=== PATIENT | female | born 1970 | race Caucasian/White ===

== ENCOUNTER 2016-05-30 08:41 | Inpatient (IN) | payer OTHER ==
[2016-05-30] VITALS (11 sets, daily range): BP systolic 124–167; BP diastolic 68–88
[~2016-05-30] VITALS: Ht 160 cm; Wt 137.4 kg
[~2016-05-30 08:41] MED LIST: CELEXA10 MG PO; CELEXA20 MG PO; CORDROL20 MG PO; COREG12.5 MG PO; COREG25 MG PO; DIFLUCAN100 MG PO; HYDROCODONE BIT1 T11 PO; LEVOFLOXACIN500 MG PO; MOBIC15 MG PO; NYSTAT-RX1 POW; PRILOSEC40 MG PO; TYLENOL325 M1 PO; XANAX0.5 MG PO; ZOFRAN ODT4 MG SL
[2016-05-30 09:34] LABS: BASO # 0.1 10*3/uL (0.0-0.1); BASO % 0.8 % (0.0-1.0); EOS # 0.1 10*3/uL (0.0-0.4); EOS % 1.6 % (1.0-4.0); HEMATOCRIT 36.4 % (37.0-47.0); HEMOGLOBIN 11.2 g/dl (12.0-16.0); LYMPH # 1.7 10*3/uL (1.3-4.4); LYMPH % 22.5 % (27.0-41.0); MEAN CORPUSCULAR HGB 20.6 pg (27.0-31.0); MEAN CORPUSCULAR HGB CONC 30.8 g/dl (33.0-37.0); MEAN PLATELET VOLUME 8.6 fl (9.6-12.3); MONO # 0.4 10*3/uL (0.1-1.0); MONO % 5.1 % (3.0-9.0); NEUT # 5.3 10*3/uL (2.3-7.9); NEUT % 69.7 % (47.0-73.0); PLATELET COUNT AUTOMATED 256 10*3/uL (130-400); RED BLOOD COUNT 5.43 10*6/uL (4.10-5.10); RED CELL DISTRI WIDTH 15.6 % (0-14.5); WHITE BLOOD COUNT 7.6 10*3/uL (4.8-10.8)
[2016-05-30 09:43] LABS: INTERNATIONAL NORM RATIO 0.9 (2.0-3.5)
[2016-05-30 09:54] LABS: ALBUMIN 3.4 gm/dl (3.1-4.5); ALKALINE PHOSPHATASE 52 U/L (45-117); BILIRUBIN, TOTAL 0.7 mg/dl (0.2-1.0); BUN 9 mg/dl (7-24); CARBON DIOXIDE 28 mmol/L (21-32); CHLORIDE 107 mmol/L (98-107); EST GLOM FILT AFRICAN AMERICAN > 60 ml/min; GLUCOSE 107 mg/dL (65-99); MAGNESIUM 1.8 mg/dL (1.5-2.1); POTASSIUM 3.9 mmol/L (3.5-5.1); SGOT/AST 11 IU/L (3-35); SGPT/ALT 27 U/L (12-78); SODIUM 143 mmol/L (136-145); TOTAL PROTEIN 7.2 gm/dL (6.4-8.2)
[2016-05-30 10:06] LABS: TROPONIN I < 0.015 ng/ml (<0.5)
[2016-05-30 18:12] LABS: CKMB 0.8 ng/ml (0.5-3.6); CPK 38 U/L (26-192)
[2016-05-30 18:23] LABS: TROPONIN I < 0.015 ng/ml (<0.5)
[2016-05-31] VITALS: BP 140/80
[2016-05-31 00:54] LABS: CKMB 1.2 ng/ml (0.5-3.6); CPK 33 U/L (26-192)
[2016-05-31 00:55] LABS: TROPONIN I < 0.015 ng/ml (<0.5)
[2016-05-31 06:08] LABS: BASO # 0.1 10*3/uL (0.0-0.1); BASO % 0.8 % (0.0-1.0); EOS # 0.2 10*3/uL (0.0-0.4); HEMATOCRIT 35.8 % (37.0-47.0); HEMOGLOBIN 10.6 g/dl (12.0-16.0); LYMPH # 2.1 10*3/uL (1.3-4.4); MEAN CELL VOLUME 67.7 fl (81.0-99.0); MEAN CORPUSCULAR HGB CONC 29.6 g/dl (33.0-37.0); MONO # 0.5 10*3/uL (0.1-1.0); MONO % 6.2 % (3.0-9.0); NEUT % 63.7 % (47.0-73.0); PLATELET COUNT AUTOMATED 261 10*3/uL (130-400); RED BLOOD COUNT 5.29 10*6/uL (4.10-5.10); RED CELL DISTRI WIDTH 15.7 % (0-14.5); WHITE BLOOD COUNT 7.9 10*3/uL (4.8-10.8)
[2016-05-31 06:20] LABS: CKMB 0.9 ng/ml (0.5-3.6); CPK 28 U/L (26-192)
[2016-05-31 06:23] LABS: HEMOGLOBIN A1c 5.7 % (4.8-5.6); TROPONIN I < 0.015 ng/ml (<0.5)
[2016-05-31 06:41] LABS: ALBUMIN 3.2 gm/dl (3.1-4.5); ALKALINE PHOSPHATASE 51 U/L (45-117); BILIRUBIN, TOTAL 0.6 mg/dl (0.2-1.0); BUN 11 mg/dl (7-24); CARBON DIOXIDE 27 mmol/L (21-32); CHLORIDE 107 mmol/L (98-107); CHOLESTEROL 137 mg/dL (<200); EST GLOM FILT AFRICAN AMERICAN > 60 ml/min; FREE T4 1.12 ng/dl (0.76-1.46); GLUCOSE 101 mg/dL (65-99); HDL CHOLESTEROL 55 mg/dl (40-60); LDL CHOLESTEROL 67 mg/dL (9-159); MAGNESIUM 1.8 mg/dL (1.5-2.1); PHOSPHOROUS 3.7 mg/dL (2.5-4.9); POTASSIUM 3.8 mmol/L (3.5-5.1); SGOT/AST 12 IU/L (3-35); SGPT/ALT 24 U/L (12-78); SODIUM 142 mmol/L (136-145); TRIGLYCERIDES 73 mg/dl (<150); VLDL CHOLESTEROL 15 mg/dL (6-40)
[2016-05-31 07:13] LABS: FOLIC ACID 8.27 ng/mL (>5.38); VITAMIN D, 25-HYDROXY 16.6 ng/mL (30-100)
[2016-05-31 08:00] VITALS: BP 130/68
[2016-05-31] MEDS ORDERED: PANTOPRAZOLE SO40 MG PO (09:57)
[2016-05-31] MEDS ORDERED: VITAMIN D5000 I3 PO (09:59)
[2016-05-31 12:00] VITALS: BP 141/76
== END 2016-05-31 12:45 | disposition home or self-care (01) | DRG 392 ==
LOC: ED 08:41 → 5E 11:09 → EDHOLD 11:09 → 5E 11:19
PROVIDERS: Family Medicine; Registered Nurse
DX: K21.9 Gastro-esophageal reflux disease without esophagitis (principal); I24.9 Acute ischemic heart disease, unspecified; R07.89 Other chest pain; E66.01 Morbid (severe) obesity due to excess calories; I10 Essential (primary) hypertension; R13.10 Dysphagia, unspecified; F32.9 Major depressive disorder, single episode, unspecified; D50.9 Iron deficiency anemia, unspecified; E55.9 Vitamin D deficiency, unspecified; E74.39 Other disorders of intestinal carbohydrate absorption; Z98.890 Other specified postprocedural states; Z83.3 Family history of diabetes mellitus; Z82.49 Family history of ischemic heart disease and other diseases of the circulatory system; Z84.89 Family history of other specified conditions; Z88.8 Allergy status to other drugs, medicaments and biological substances; Z79.899 Other long term (current) drug therapy

== ENCOUNTER → 2016-07-26 | Day surgery (SDC) | payer OTHER ==
[~2016-07-26] VITALS: Ht 160 cm; Wt 139.7 kg
[~2016-07-26] MED LIST changes: +PANTOPRAZOLE SO40 MG PO; +VITAMIN D5000 I3 PO
--- NOTE | ~2016-07-26 | PROC NOTE ---
[place], [place] PROCEDURE NOTE NAME: KARI COOPER [facility] #: [id number] UNIT #: [id number] ROOM: DOCTOR: ITZ HUDSON MD BIRTHDATE: [birth year] DOS: 07/26/2016 PREOPERATIVE DIAGNOSIS: Gastroesophageal reflux disease. POSTOPERATIVE DIAGNOSIS: Gastroesophageal reflux disease. PROCEDURE: Esophagogastroduodenoscopy with antral biopsies x 2. ENDOSCOPIST: Itz Hudson M.D. INTEGRATION TECHNICIAN: None. ANESTHESIA: MAC. INDICATIONS: This is a 46-year-old lady with a history of GERD and possible aspiration, who is here for the above-mentioned procedure. The procedure and its complications were explained to the patient in detail preoperatively. Complications that were discussed included but were not limited to bleeding, missed lesions, and stomach perforation. She agreed to proceed. DESCRIPTION OF PROCEDURE: After identifying the patient, the patient was brought to the endoscopy suite and laid in the left lateral position. A timeout procedure was called, a bite block was placed, and IV sedation was administered by the anesthesia team. An adult gastroscope was now introduced into the mouth and advanced sequentially into the pharynx, esophagus, stomach, and the first 2 parts of the duodenum. There was found to be some mild antral gastritis for which 2 biopsies were taken and sent for histopathological diagnosis. The scope was then retroflexed and the rest of the stomach was visualized and there was no bleeding seen, no lesions seen. The duodenum was found to be within normal limits. The scope was then withdrawn and the patient was taken to the recovery room in stable fashion. There were no complications. Dr. Itz Hudson, the attending endoscopist, was present throughout the operating case. Itz Hudson MD CM:PROCNOTE:PROCEDURE NOTE [id number] ITZ HUDSON MD
== END | disposition home or self-care (01) ==
LOC: SDC 07-23 09:30
DX: K29.50 Unspecified chronic gastritis without bleeding (principal); K21.9 Gastro-esophageal reflux disease without esophagitis; I10 Essential (primary) hypertension; F41.9 Anxiety disorder, unspecified; Z86.14 Personal history of Methicillin resistant Staphylococcus aureus infection; Z87.01 Personal history of pneumonia (recurrent); Z83.3 Family history of diabetes mellitus; Z82.49 Family history of ischemic heart disease and other diseases of the circulatory system; Z80.49 Family history of malignant neoplasm of other genital organs

== ENCOUNTER 2016-09-17 10:36 | Emergency (ER) | payer OTHER ==
[~2016-09-17] VITALS: Ht 160 cm; Wt 137.4 kg
--- NOTE | ~2016-09-17 | EKG ---
[place], [place] ELECTROCARDIOGRAM REPORT NAME: KARI COOPER UNIT #: [id number] ROOM: DOCTOR: MICHAEL SHARP MD BIRTHDATE: [birth year] DOS: 09/17/2016 TIME: 11:25 a.m. Normal sinus rhythm at rate of 60 with 1 atrial premature contraction noted. Nonspecific intraventricular conduction delay. Borderline electrocardiogram. MICHAEL SHARP MD CM:EKGRPT:ELECTROCARDIOGRAM REPORT [id number] MICHAEL SHARP MD
[2016-09-17] MEDS ORDERED: TRAMADOL HCL50 MG PO (10:45)
[2016-09-17 11:28] LABS: BASO # 0.1 10*3/uL (0.0-0.1); BASO % 0.4 % (0.0-1.0); EOS % 0.2 % (1.0-4.0); HEMATOCRIT 33.9 % (37.0-47.0); LYMPH # 3.2 10*3/uL (1.3-4.4); LYMPH % 23.6 % (27.0-41.0); MEAN CELL VOLUME 65.8 fl (81.0-99.0); MEAN CORPUSCULAR HGB 19.4 pg (27.0-31.0); MEAN CORPUSCULAR HGB CONC 29.5 g/dl (33.0-37.0); MEAN PLATELET VOLUME 9.5 fl (9.6-12.3); MONO # 1.3 10*3/uL (0.1-1.0); MONO % 9.5 % (3.0-9.0); NEUT # 8.8 10*3/uL (2.3-7.9); PLATELET COUNT AUTOMATED 286 10*3/uL (130-400); RED BLOOD COUNT 5.15 10*6/uL (4.10-5.10); RED CELL DISTRI WIDTH 15.9 % (0-14.5); WHITE BLOOD COUNT 13.4 10*3/uL (4.8-10.8)
[2016-09-17 11:37] LABS: PROTHROMBIN TIME 10.6 SECONDS (9.0-12.4)
[2016-09-17 11:52] LABS: ALBUMIN 3.5 gm/dl (3.1-4.5); ALKALINE PHOSPHATASE 45 U/L (45-117); BILIRUBIN, TOTAL 0.6 mg/dl (0.2-1.0); BUN 14 mg/dl (7-24); C-REACTIVE PROTEIN 0.48 MG/DL (0-0.3); CARBON DIOXIDE 28 mmol/L (21-32); CHLORIDE 107 mmol/L (98-107); CKMB 0.8 ng/ml (0.5-3.6); CPK 28 U/L (26-192); EST GLOM FILT AFRICAN AMERICAN > 60 ml/min; GLUCOSE 99 mg/dL (65-99); MAGNESIUM 1.8 mg/dL (1.5-2.1); POTASSIUM 3.8 mmol/L (3.5-5.1); SGOT/AST 12 IU/L (3-35); SGPT/ALT 19 U/L (12-78); SODIUM 142 mmol/L (136-145); TOTAL PROTEIN 7.1 gm/dL (6.4-8.2)
[2016-09-17 11:53] LABS: TROPONIN I < 0.015 ng/ml (<0.045)
[2016-09-17 12:25] LABS: BILIRUBIN NEGATIVE (NEGATIVE); BLOOD TRACE-LYSED (NEGATIVE); CLARITY CLEAR (CLEAR); COLOR YELLOW (YELLOW); GLUCOSE NEGATIVE (NEGATIVE); KETONE NEGATIVE (NEGATIVE); LEUKO ESTERASE NEGATIVE (NEGATIVE); NITRITE NEGATIVE (NEGATIVE); PH 5.5 (5.0-9.0); PROTEIN 1+ (NEGATIVE); UROBILINOGEN 0.2 E.U./dl (0.2-1.0)
[2016-09-17 12:33] LABS: URINE REFLEX COMMENT NO (NO)
== END 2016-09-17 16:16 | disposition short-term general hospital (02) ==
LOC: ED 10:36
PROVIDERS: Emergency Medicine
DX: K81.0 Acute cholecystitis (principal); F32.9 Major depressive disorder, single episode, unspecified; I10 Essential (primary) hypertension; E66.01 Morbid (severe) obesity due to excess calories; E55.9 Vitamin D deficiency, unspecified; Z98.890 Other specified postprocedural states; Z87.442 Personal history of urinary calculi; Z79.899 Other long term (current) drug therapy; Z88.5 Allergy status to narcotic agent; Z88.8 Allergy status to other drugs, medicaments and biological substances

== ENCOUNTER 2016-09-21 21:20 | Emergency (ER) | payer OTHER ==
[~2016-09-21] VITALS: Ht 160 cm; Wt 140.6 kg
[~2016-09-21 21:20] MED LIST changes: +TRAMADOL HCL50 MG PO
[2016-09-21 22:00] LABS: BASO % 0.3 % (0.0-1.0); EOS # 0.6 10*3/uL (0.0-0.4); EOS % 4.9 % (1.0-4.0); HEMATOCRIT 31.4 % (37.0-47.0); HEMOGLOBIN 9.4 g/dl (12.0-16.0); LYMPH # 2.9 10*3/uL (1.3-4.4); LYMPH % 24.7 % (27.0-41.0); MEAN CORPUSCULAR HGB 19.7 pg (27.0-31.0); MEAN CORPUSCULAR HGB CONC 29.9 g/dl (33.0-37.0); MONO # 0.9 10*3/uL (0.1-1.0); MONO % 7.8 % (3.0-9.0); NEUT # 7.2 10*3/uL (2.3-7.9); PLATELET COUNT AUTOMATED 310 10*3/uL (130-400); RED BLOOD COUNT 4.76 10*6/uL (4.10-5.10); RED CELL DISTRI WIDTH 15.7 % (0-14.5); WHITE BLOOD COUNT 11.6 10*3/uL (4.8-10.8)
[2016-09-21 22:15] LABS: ALBUMIN 3.1 gm/dl (3.1-4.5); ALKALINE PHOSPHATASE 43 U/L (45-117); BILIRUBIN, TOTAL 0.5 mg/dl (0.2-1.0); BUN 17 mg/dl (7-24); CARBON DIOXIDE 27 mmol/L (21-32); CHLORIDE 108 mmol/L (98-107); EST GLOM FILT AFRICAN AMERICAN > 60 ml/min; GLUCOSE 109 mg/dL (65-99); POTASSIUM 4.1 mmol/L (3.5-5.1); SGOT/AST 4 IU/L (3-35); SGPT/ALT 16 U/L (12-78); SODIUM 146 mmol/L (136-145); TOTAL PROTEIN 6.7 gm/dL (6.4-8.2)
[2016-09-21] MEDS ORDERED: KEFLEX500 M1 PO (22:37)
== END 2016-09-21 22:46 | disposition home or self-care (01) ==
LOC: ED 21:20
PROVIDERS: Family Medicine
DX: T81.4XXA Infection following a procedure, initial encounter (principal); Z88.6 Allergy status to analgesic agent; Z88.8 Allergy status to other drugs, medicaments and biological substances; I10 Essential (primary) hypertension; F32.9 Major depressive disorder, single episode, unspecified

== ENCOUNTER → 2017-03-05 | Outpatient (CLI) | payer OTHER ==
[~2017-03-05] MED LIST changes: +KEFLEX500 M1 PO
== END | disposition home or self-care (01) ==
LOC: MAMMO 06:53
DX: Z12.31 Encounter for screening mammogram for malignant neoplasm of breast (principal)

== ENCOUNTER 2017-03-25 16:31 | Emergency (ER) | payer OTHER ==
[~2017-03-25] VITALS: Ht 210.8 cm; Wt 142.9 kg
[2017-03-25 17:49] LABS: BASO # 0.1 10*3/uL (0.0-0.1); BASO % 0.6 % (0.0-1.0); EOS # 0.1 10*3/uL (0.0-0.4); EOS % 1.3 % (1.0-4.0); HEMATOCRIT 29.5 % (37.0-47.0); HEMOGLOBIN 8.7 g/dl (12.0-16.0); LYMPH # 2.8 10*3/uL (1.3-4.4); LYMPH % 28.8 % (27.0-41.0); MEAN CELL VOLUME 65.8 fl (81.0-99.0); MEAN CORPUSCULAR HGB 19.4 pg (27.0-31.0); MEAN CORPUSCULAR HGB CONC 29.5 g/dl (33.0-37.0); MEAN PLATELET VOLUME 8.8 fl (9.6-12.3); MONO # 0.7 10*3/uL (0.1-1.0); MONO % 6.9 % (3.0-9.0); PLATELET COUNT AUTOMATED 273 10*3/uL (130-400); RED BLOOD COUNT 4.48 10*6/uL (4.10-5.10); RED CELL DISTRI WIDTH 16.3 % (0-14.5); WHITE BLOOD COUNT 9.7 10*3/uL (4.8-10.8)
[2017-03-25 18:04] LABS: ALBUMIN 3.3 gm/dl (3.1-4.5); ALKALINE PHOSPHATASE 57 U/L (45-117); BUN 10 mg/dl (7-24); CHLORIDE 104 mmol/L (98-107); POTASSIUM 3.6 mmol/L (3.5-5.1); SGOT/AST 8 IU/L (3-35); SGPT/ALT 19 U/L (12-78); SODIUM 141 mmol/L (136-145); TOTAL PROTEIN 7.1 gm/dL (6.4-8.2)
[2017-03-25] MEDS ORDERED: PREDNISONE20 M1 PO (19:35)
[2017-03-25] MEDS ORDERED: LEVOFLOXACIN500 MG PO (19:35)
[2017-03-25] MEDS ORDERED: ALBUTEROL2.5 MG/0.5 INH (19:35)
== END 2017-03-25 19:55 | disposition home or self-care (01) ==
LOC: ED 16:31
PROVIDERS: Nurse Practitioner Family
DX: J20.9 Acute bronchitis, unspecified (principal); Z88.6 Allergy status to analgesic agent; Z88.8 Allergy status to other drugs, medicaments and biological substances; Z79.899 Other long term (current) drug therapy

== ENCOUNTER 2017-06-04 00:21 | Emergency (ER) | payer OTHER ==
[~2017-06-04] VITALS: Ht 160 cm; Wt 142.9 kg
[~2017-06-04 00:21] MED LIST changes: +ALBUTEROL2.5 MG/0.5 INH; +PREDNISONE20 M1 PO
[2017-06-04] MEDS ORDERED: CYCLOBENZAPRINE10 MG PO (02:01)
[2017-06-04] MEDS ORDERED: NAPROSYN500 MG PO (02:01)
== END 2017-06-04 02:20 | disposition home or self-care (01) ==
LOC: ED 00:21
DX: R10.31 Right lower quadrant pain (principal); M54.2 Cervicalgia; F32.9 Major depressive disorder, single episode, unspecified; I10 Essential (primary) hypertension; Z88.8 Allergy status to other drugs, medicaments and biological substances; Z79.899 Other long term (current) drug therapy; Z90.49 Acquired absence of other specified parts of digestive tract; V89.2XXA Person injured in unspecified motor-vehicle accident, traffic, initial encounter; Y93.89 Activity, other specified; Y92.89 Other specified places as the place of occurrence of the external cause; Y99.8 Other external cause status

== ENCOUNTER → 2017-06-10 | Outpatient (CLI) | payer OTHER ==
[~2017-06-10] MED LIST changes: +CALCIUM500 M1 PO; +COLACE100 MG PO; +COZAAR25 M1 PO; +CYCLOBENZAPRINE10 MG PO; +DOXYCYCLINE100 M3 PO; +DUONEB 3 MG/3 ML3 M1 INH; +IRON325 M1 PO; +KLOR-CON M2020 ME1 PO; +LASIX20 MG PO; +NAPROSYN500 MG PO; +ONE DAILY WOME1 EACH PO; +PREDNISONE10 MG PO
[2017-06-11 08:10] LABS: IMMUNOGLOBULIN G, QNT 1043 mg/dL (700-1600); IMMUNOGLOBULIN M, QNT 34 mg/dL (26-217)
[2017-06-14 16:10] LABS: IMMUNOGLOBULIN IgE 002170 829 IU/mL (0-100)
== END | disposition home or self-care (01) ==
LOC: LAB 14:57
PROVIDERS: Internal Medicine Hematology & Oncology
DX: D50.9 Iron deficiency anemia, unspecified (principal); D83.9 Common variable immunodeficiency, unspecified

== ENCOUNTER 2017-06-14 20:51 | Inpatient (IN) | payer OTHER ==
[~2017-06-14] VITALS: Ht 157.4 cm; Wt 147.6 kg
--- NOTE | ~2017-06-14 | PR ---
[place], [place] PROGRESS NOTE NAME: KARI COOPER [facility] #: [id number] UNIT #: [id number] ROOM: 531 DOCTOR: TRICIA NEWMAN MD,CORDELL BIRTHDATE: [birth year] DOS: 06/16/2017 SUBJECTIVE: The patient was noted comfortable at this time, was still noted edema of the lower extremity, shortness breath still occurs with exertion with nonproductive cough. Denies symptoms of chest pain. She has been n.p.o. past midnight for bronchoscopy planned for today. Denies any abdominal pain, any abnormal skin rashes. Denies dizziness, headache, diplopia or syncopal episodes. Remaining review of systems was noted as negative. PHYSICAL EXAMINATION: GENERAL: A 47-year-old white female who has been currently noted awake and alert at this time without any distress. VITAL SIGNS: The patient's temperature remains normal in the last 24 hours, respiratory rate 18-20, heart rate of 66-73, blood pressure 104/48-104/62. Pulse oxygen saturation on room air was noted at 98% saturation. HEENT: Moderate chronic obesity. NECK: Supple and obese. CARDIOVASCULAR: S1, S2 audible. LUNGS: The patient was noted with mild decreased breath sounds without wheezing or crackles. ABDOMEN: Soft, nontender. EXTREMITIES: Still shows 2+ pitting edema. LABORATORY DATA: CBC of the patient today shows WBC count normal, hemoglobin 8, hematocrit 28.1, platelet count was normal. IgE level was still noted elevated ____. The BMP for the patient, BUN 12, creatinine was normal, glucose 118. Potassium 3.3. IMPRESSION: 1. The patient with bilateral pulmonary infiltration, which has been noted for this patient with elevation of IgE level. Possible consideration for the acute eosinophilic pneumonia for this patient. Other interstitial lung diseases would be considered. 2. Edema of the lower extremity was also noted. The CBC that was done on admission does not show any evidence of eosinophilia. PLAN OF MANAGEMENT: Bronchoscopy will be done today. After the bronchoscopy, the patient probably will be started on the corticosteroids as well. In the meantime, continuation of the current plan of management. The biopsy will be taken of the right lower lobe and BAL specimen from the right lower lobe will be collected as well. Supportive therapy, plan of management and other care. Usual treatment. Continuation of Lasix 40 mg daily that was started yesterday. Cardiac assessment should be continued concomitantly. [place], [place] PROGRESS NOTE [facility] [id number] UNIT #: [id number] ROOM: 531 DOCTOR: CORDELL KIRKLAND MD BIRTHDATE: [birth year] CORDELL CLARKE MD CM:PNTRANS 1203 [id number] CORDELL NEWMAN MD 06/16/17 2320 interface
--- NOTE | ~2017-06-14 | CON ---
[place], [place] REPORT OF CONSULTATION NAME: KARI COOPER [facility] #: [id number] UNIT #: [id number] ROOM: 531 DOCTOR: CORDELL KIRKLAND MD BIRTHDATE: [birth year] DOS: 06/15/2017 CONSULTATION REQUESTED BY: Hospitalist services. REASON FOR CONSULTATION: For current abnormal respiratory symptoms. HISTORY OF PRESENT ILLNESS: This is a 47-year-old white female who has been seen in my office previously. The patient was recently seen in the office 03/26/2017, because of progressive severe nonproductive cough. She was noted with interstitial lung disease and suspected for possibility of acute hypersensitivity pneumonitis. The patient's workup has been started. She was given empirically corticosteroids for few days without any improvement in symptom. She has a scheduled bronchoscopy be done tomorrow morning for transbronchial biopsy to further assess the interstitial lung disease. She stated having progressive increased shortness of breath that has been occurring with significant edema in the lower extremities. Shortness of breath occurring with walking a few feet on a level surface in the past 24 hours. The patient does have symptoms of mild cough without any sputum expectoration at this time, but noted with the coughing intermittently previously with sputum expectoration described as blood-tinged as well. She denies any symptoms of wheezing or chest pain or chest tightness. The patient has been assessed in the Emergency Room yesterday and was hospitalized for further medical management at this time. REVIEW OF SYSTEMS: CONSTITUTIONAL SYMPTOMS: She was complaining of fatigue. There were no symptoms of fever or chills. EYES: Denies any burning, redness, tenderness. EARS, NOSE AND THROAT SYMPTOMS: Denies sore throat, hoarseness, otalgia, postnasal drainage or epistaxis. CARDIOVASCULAR: Noted edema of the lower extremities. There were no symptoms of palpitation or anginal pain. GASTROINTESTINAL: Denies dysphagia, nausea, vomiting, diarrhea, abdominal pain, hematemesis, melena, or hematochezia. The patient was known with a history of very severe morbid obesity. GENITOURINARY SYMPTOMS: Dysuria, suprapubic pain, hematuria. SKIN: Denies any abnormal lesions or rashes. MUSCULOSKELETAL: Denies any acute joint pain. CENTRAL NERVOUS SYSTEM: Denies dizziness, diplopia, syncopal episode, tingling sensation of the extremities. Remaining systems were reviewed. They were noted all negative. PAST MEDICAL HISTORY: Noted with: 1. Severe morbid obesity, BMI of greater than 60. 2. Interstitial lung disease with possible consideration of acute hypersensitivity and pneumonitis for this patient with interstitial lung disease. 3. Gastroesophageal reflux disease. SOCIAL HISTORY: The patient is , has 2 children. Denies history of [place], [place] REPORT OF CONSULTATION NAME: KARI COOPER UNIT #: [id number] ROOM: 531 DOCTOR: FAN KIRKLAND MDM BIRTHDATE: [birth year] alcohol use or any illicit drug use. Denies any history of tobacco use, noted lifetime nonsmoker. PAST SURGICAL HISTORY: 1. T and A. 2. . 3. Right inguinal hernia repair. 4. Lithotripsy. 5. Laparoscopic cholecystectomy. 6. Appendectomy. 7. Partial colectomy with diverticulosis. FAMILY HISTORY: The patient's father is currently 68 years old known with history of lung cancer. Mother 70 years old known with history of chronic obstructive pulmonary disease as well. HOME MEDICATIONS: The patient was known with the use of Lasix, potassium chloride, ProAir, vitamin B12, Protonix, citalopram and estrogen preparation. DRUG ALLERGIES: NOTED ALLERGY TO: 1. DEMEROL. 2. DILAUDID. 3. PHENERGAN. PHYSICAL EXAMINATION: GENERAL: A 47-year-old white female, currently sitting on side of the bed without any acute distress. Height of 5 feet 3 inches, weight of 340 pounds, BMI of 62. VITAL SIGNS: Since admission, the temperature noted 99.2 degree Fahrenheit, normal temperature, respiratory rate 16-20, heart rate of 65-72, blood pressure 151/83-187/68 on admission. Pulse oxygen saturation for the patient on admission noted as 98%-96% saturation. HEENT: Head was atraumatic. Eyes nonicterus. Oral mucosa was moist. Severe decreased posterior pharyngeal space. NECK: Supple. CARDIOVASCULAR SYSTEM: S1, S2 is audible. LUNGS: The patient noted to have mild decreased breath sounds in the lungs without any wheezing or crackles heard. ABDOMEN: Noted soft, severe obesity. Bowel sounds present without any tenderness. EXTREMITIES: Shows 2-3+ pitting edema, which is a new finding from my past assessment on 06/10/2017. VISIBLE SKIN: No lesions or rashes. MUSCULOSKELETAL: Without any acute deformities. LABORATORY DATA: The influenza A, B, nasal washing antigen yesterday negative in the Emergency Room. CBC yesterday 06/14/2017, hemoglobin 8.1, hematocrit 27.8, MCV of 63 with normal platelet count. The CMP of the patient that was done yesterday noted essentially normal. The troponin noted normal. The proBNP of the patient was noted mildly elevated to 765. CBC this morning, hemoglobin [place], [place] REPORT OF CONSULTATION NAME: KARI COOPER UNIT #: [id number] ROOM: 531 DOCTOR: CORDELL KIRKLAND MD BIRTHDATE: [birth year] 7.5, hematocrit 26.6, MCV 63.9, normal platelet count. CMP of the patient, glucose 130, BUN and creatinine was normal. Potassium 3.3. Remaining LFTs normal. PT/PTT this morning was normal. The review of the chest x-ray of the patient, the chest x-ray that was done on 06/14/2017, was essentially noted with increased interstitial marking without any other acute abnormalities. CT scan of the chest, which was done without contrast was reviewed. The lab data for this patient, which was previously known to me, as well as a CT scan of the chest with the previous admission shows an interstitial lab work of the patient that was done as an outpatient at [facility], noted with IgE elevated at 941 with a normal SISI level, IgG, subclasses, normal assessment for the vasculitis, connective tissue disorder, and the fungal infection serology all noted as negative. CT scan of the chest was completed in [facility] on 06/04/2017, shows evidence of ground-glass opacity noted in the lungs bilaterally with the loose nodular formations were noted in the patient's lower lungs. She has another CT scan of the chest that was done on 03/25/2017, in ____ with evidence of ground-glass opacities noted in the lungs bilaterally. The CT scan of the chest that was completed without contrast on 06/15/2017, shows partial reduction of the noted abnormality; however, ground-glass opacity of the patient's lower lung still persists. IMPRESSION: 1. The patient has been currently admitted to the hospital, was noted with findings of significant edema of the lower extremity for the patient at this time with increased shortness of breath with etiology remains unclear. 2. Suspected diagnosis of nonspecific interstitial pneumonitis with possibility of consideration of hypersensitivity pneumonitis or connective tissue disorder as well. 3. History of severe morbid obesity with clinical suspicion of obstructive sleep apnea disorder, which has been pending for the patient to be assessed later on. 4. Rule out congestive heart failure, right ventricular failure with current edema of the lower extremity, also rule out deep venous thrombosis of bilateral lower extremities as well. 5. Severe morbid obesity. PLAN OF MANAGEMENT: Order the ultrasound of the bilateral lower extremities to exclude deep venous thrombosis. Once the diagnosis of deep venous thrombosis is excluded, the patient will undergo the bronchoscopy tomorrow morning as scheduled initially as an outpatient or inpatient with transbronchial biopsy in consideration for possibility of the right or the left lower lobe. The BAL specimen will be also obtained. Diuretic therapy for the patient to improve the edema. Cardiology assessment will be recommended strongly for the patient as well to assess for cardiac problems including obtaining echocardiogram for this patient as well. Supportive care and plan of therapy as well. The steroids used at this time will be placed on hold until a more definitive diagnosis is obtained; however, if respiratory status deteriorates further and the patient with increased symptoms, she will be started on empirical corticosteroid therapy at that time. Risk and benefits of procedure has been known to the patient and she was agreeable for the procedure that will be done tomorrow morning. [place], [place] REPORT OF CONSULTATION NAME: KARI COOPER UNIT #: [id number] ROOM: 531 DOCTOR: CORDELL KIRKLAND MD BIRTHDATE: [birth year] Thank you for allowing me to participate in the care of this patient. CORDELL CLARKE MD CM:CONSTR:REPORT OF CONSULTATION 1434 06/16/17 0703 interface
--- NOTE | ~2017-06-14 | EKG ---
[place], [place] ELECTROCARDIOGRAM REPORT NAME: KARI COOPER UNIT #: [id number] ROOM: 531 DOCTOR: TRICIA NEWMAN MD,CORDELL BIRTHDATE: [birth year] DOS: 06/15/2017 Electrocardiogram done on 06/15/2017 at 12:42 p.m. IMPRESSION: Normal sinus rhythm noted. Heart rate of 61 beats per minute with nonspecific intraventricular conduction delay for this patient was suspected. CORDELL CLARKE MD CM:EKGRPT:ELECTROCARDIOGRAM REPORT 1437 1547 CORDELL NEWMAN MD
--- NOTE | ~2017-06-14 | PROC NOTE ---
[place], [place] PROCEDURE NOTE NAME: KARI COOPER [facility] #: [id number] UNIT #: [id number] ROOM: 531 DOCTOR: TRICIA NEWMAN MD,CORDELL BIRTHDATE: [birth year] DOS: 06/16/2017 BRONCHOSCOPY NOTE PREOPERATIVE DIAGNOSES: The patient with interstitial infiltration with symptoms of shortness of breath and cough. POSTOPERATIVE DIAGNOSES: Bronchoalveolar lavage specimen was obtained from the right lower lobe as well transbronchial biopsy done successfully for two of those in the right lower lobe. COMPLICATIONS: None. PROCEDURE DESCRIPTION: Informed consent was obtained for the patient. The patient was brought to the OR for the bronchoscopy. She was placed in supine position. Conscious sedation was administered by the Anesthesia Department. After achieving proper sedation, airway introduced into the mouth. Bronchoscope advanced through the airway, vocal cords, and tracheal lumen. Vocal cord was identified, yellowish in color, moving symmetrically with the movements. Bronchoscope advanced through the vocal cords and tracheal lumen, does not show any significant secretions. Right upper, right middle, right lower, left upper, and lingular lower lobe bronchi all noted with scattered amount of secretion, which was suctioned out. The BAL specimen was obtained from the basilar subsegment of the right lower lobe. After that, two transbronchial biopsies were done with the help of fluoroscopy. The patient has been noted with a couple of mL of blood loss for the patient with the procedure, not noted active bleeding prior to the withdraw and after the bronchoscope. Postoperative findings will be discussed with the patient once the patient recovered the effects of acute sedation. At this time, the patient will be ordered the Solu-Medrol 40 mg b.i.d. dosing for this patient. The BAL specimen will be analyzed. The culture of the patient will be monitored as well as a cytology specimen. CORDELL CLARKE MD CM:PROCNOTE:PROCEDURE NOTE 1205 2339 CORDELL NEWMAN MD
--- NOTE | ~2017-06-14 | EKG ---
[place], [place] ELECTROCARDIOGRAM REPORT NAME: KARI COOPER UNIT #: [id number] ROOM: 531 DOCTOR: TRICIA NEWMAN MD,CORDELL BIRTHDATE: [birth year] DOS: 06/14/2017 Electrocardiogram done on 06/14/2017 at 11:03 p.m. Normal sinus rhythm noted. Heart rate 70 beats per minute. Intraventricular conduction delay with the patient was also noted. Nonspecific ST-T changes for the patient was noted. CORDELL CLARKE MD CM:EKGRPT:ELECTROCARDIOGRAM REPORT 1436 1537 CORDELL NEWMAN MD
--- NOTE | ~2017-06-14 | PR ---
[place], [place] PROGRESS NOTE NAME: KARI COOPER [facility] #: [id number] UNIT #: [id number] ROOM: 531 DOCTOR: TRICIA NEWMAN MD,CORDELL BIRTHDATE: [birth year] DOS: 06/17/2017 SUBJECTIVE: She has been comfortably resting, sitting on the bed at this time. Diuretics for the patient were continued and the patient remained negative for balance of more than 2 liters. In the last 24 hours bronchoscopy completed yesterday. Denies symptoms of headache, nausea. The shortness of breath has been noted somewhat decreased. There was no cough reported today. There were symptoms of hemoptysis. Denies any symptoms of headache. General weakness and fatigue were noted partially decreased. Remaining system review for the patient was rather noted normal. OBJECTIVE: VITAL SIGNS: For the patient which were done today showed temperature 99.2 degree Fahrenheit, normal temperature, respiratory rate 22, heart rate of 82, blood pressure 126/57. The pulse oxygen saturation on room air was 93% saturation. HEENT: No acute change. Chronic obesity. NECK: Supple. CARDIOVASCULAR: S1, S2 audible. LUNGS: Noted mild decreased breath sounds without any wheeze or crackle at the present time. ABDOMEN: Soft, nontender with chronic severe obesity. EXTREMITIES: Still shows 2+ pitting edema. SKIN: Visible skin no lesions or rashes. MUSCULOSKELETAL SYMPTOMS: Without acute deformities. CENTRAL NERVOUS SYSTEM: Intact. LABORATORY DATA: The patient's CBC this morning, WBC count 12.4, hemoglobin 8.5. hematocrit 29.8, platelet count were normal. BMP of the patient on 06/17/2017, glucose 203, remaining BMP normal. Culture of the bronchial washing showed normal [place]. Final culture results were pending. The bronchoalveolar lavage for the patient noted with 85% macrophages, lymphocytes were noted at 7% and 8% neutrophils. The differential would be considered as interstitial lung disease for this patient including from acute hypersensitivity pneumonitis. Possibility of infection and others. The ultrasound of the bilateral lower extremity was done for the patient that I ordered. The patient noted without any evidence of deep venous thrombosis of lower extremities. Echocardiogram 06/16/2017, for the patient was also done, which was assessed by Dr. Blum, described with findings of no apparent pulmonary hypertension. Normal valves were also reported except mild tricuspid regurgitation with a normal left ventricular ejection fraction as well. IMPRESSION: 1. The patient with interstitial lung disease. 2. Edema of the lower extremity with possible right-sided heart failure cannot be excluded. 3. Severe morbid obesity. 4. Suspected obstructive sleep apnea disorder as well. PLAN OF MANAGEMENT: Monitor results of transbronchial biopsies of right lower [place], [place] PROGRESS NOTE NAME: KARI COOPER UNIT #: [id number] ROOM: 531 DOCTOR: TRICIA NEWMAN MD,CORDELL BIRTHDATE: [birth year] lobe. In the meantime, continue the patient's steroids, which were started yesterday for this patient as well with monitor respiratory status. Ambulation was encouraged today to assess the improvement in the shortness of breath as well. Other treatment changes to be made for the patient based on progression of the illness. Usual care. Continue diuretics as previously to keep the patient negative for balance and resolve the edema. CORDELL CLARKE MD CM:PNTRANS 1127 [id number] CORDELL NEWMAN MD 06/17/17 2345 interface
[~2017-06-14 20:51] MED LIST changes: -DOXYCYCLINE100 M3 PO; -DUONEB 3 MG/3 ML3 M1 INH; -IRON325 M1 PO; -PREDNISONE10 MG PO
[2017-06-14 21:10] VITALS: BP 156/72
[2017-06-14 22:17] LABS: BASO # 0.1 10*3/uL (0.0-0.1); BASO % 0.5 % (0.0-1.0); EOS # 0.2 10*3/uL (0.0-0.4); EOS % 1.5 % (1.0-4.0); HEMATOCRIT 27.8 % (37.0-47.0); HEMOGLOBIN 8.1 g/dl (12.0-16.0); LYMPH # 2.9 10*3/uL (1.3-4.4); LYMPH % 27.8 % (27.0-41.0); MEAN CELL VOLUME 63.2 fl (81.0-99.0); MEAN CORPUSCULAR HGB 18.4 pg (27.0-31.0); MEAN CORPUSCULAR HGB CONC 29.1 g/dl (33.0-37.0); MEAN PLATELET VOLUME 9.3 fl (9.6-12.3); MONO # 0.8 10*3/uL (0.1-1.0); MONO % 7.3 % (3.0-9.0); NEUT # 6.5 10*3/uL (2.3-7.9); NEUT % 62.5 % (47.0-73.0); NUCLEATED RED BLOOD CELL 0.4 % (0.0-0.0); PLATELET COUNT AUTOMATED 323 10*3/uL (130-400); RED CELL DISTRI WIDTH 18.9 % (0-14.5); WHITE BLOOD COUNT 10.4 10*3/uL (4.8-10.8)
[2017-06-14 22:37] LABS: ALBUMIN 3.7 gm/dl (3.1-4.5); ALKALINE PHOSPHATASE 47 U/L (45-117); BUN 12 mg/dl (7-24); CHLORIDE 106 mmol/L (98-107); CREATININE 0.75 mg/dL (0.55-1.02); POTASSIUM 3.6 mmol/L (3.5-5.1); SGOT/AST 16 IU/L (3-35); SGPT/ALT 19 U/L (12-78); SODIUM 142 mmol/L (136-145); TOTAL PROTEIN 7.2 gm/dL (6.4-8.2)
[2017-06-14 23:21] VITALS: BP 134/61
[2017-06-15] VITALS: BP 137/74
[2017-06-15 04:00] VITALS: BP 104/48
[2017-06-15 06:14] LABS: ALBUMIN 3.3 gm/dl (3.1-4.5); ALKALINE PHOSPHATASE 48 U/L (45-117); BASO # 0.1 10*3/uL (0.0-0.1); BASO % 0.7 % (0.0-1.0); BUN 11 mg/dl (7-24); CHLORIDE 104 mmol/L (98-107); CHOLESTEROL 93 mg/dL (<200); CREATININE 0.77 mg/dL (0.55-1.02); EOS # 0.2 10*3/uL (0.0-0.4); EOS % 2.1 % (1.0-4.0); HDL CHOLESTEROL 37 mg/dl (40-60); HEMATOCRIT 26.6 % (37.0-47.0); HEMOGLOBIN 7.5 g/dl (12.0-16.0); LDL CHOLESTEROL 36 mg/dL (9-159); LYMPH # 2.5 10*3/uL (1.3-4.4); LYMPH % 28.7 % (27.0-41.0); MEAN CELL VOLUME 63.9 fl (81.0-99.0); MEAN CORPUSCULAR HGB CONC 28.2 g/dl (33.0-37.0); MEAN PLATELET VOLUME 9.3 fl (9.6-12.3); MONO # 0.8 10*3/uL (0.1-1.0); MONO % 9.1 % (3.0-9.0); NEUT % 58.8 % (47.0-73.0); NUCLEATED RED BLOOD CELL 0.1 10*3/uL (0.0-0.0); NUCLEATED RED BLOOD CELL 0.6 % (0.0-0.0); PHOSPHOROUS 5.7 mg/dL (2.5-4.9); PLATELET COUNT AUTOMATED 268 10*3/uL (130-400); POTASSIUM 3.3 mmol/L (3.5-5.1); RED BLOOD COUNT 4.16 10*6/uL (4.10-5.10); RED CELL DISTRI WIDTH 18.7 % (0-14.5); SGOT/AST 13 IU/L (3-35); SGPT/ALT 18 U/L (12-78); SODIUM 143 mmol/L (136-145); TOTAL PROTEIN 6.8 gm/dL (6.4-8.2); TRIGLYCERIDES 99 mg/dl (<150); VLDL CHOLESTEROL 20 mg/dL (6-40); WHITE BLOOD COUNT 8.6 10*3/uL (4.8-10.8)
[2017-06-15 06:15] LABS: FREE T4 1.37 ng/dl (0.76-1.46); TROPONIN I < 0.015 ng/ml (<0.045)
[2017-06-15] MEDS ORDERED: IRON325 M1 PO (06:27)
[2017-06-15 06:54] LABS: ACT PARTIAL THROMBO TIME 24.3 SECONDS (20.8-31.5)
[2017-06-15 08:00] VITALS: BP 137/66
[2017-06-15 09:14] LABS: VITAMIN D, 25-HYDROXY 21.2 ng/mL (30-100)
[2017-06-15 12:00] VITALS: BP 151/83
[2017-06-15 16:00] VITALS: BP 142/58
[2017-06-15 20:00] VITALS: BP 132/61
[2017-06-16] VITALS (8 sets, daily range): BP systolic 101–157; BP diastolic 48–88
[2017-06-16 07:09] LABS: BASO # 0.1 10*3/uL (0.0-0.1); BASO % 0.6 % (0.0-1.0); EOS # 0.2 10*3/uL (0.0-0.4); EOS % 2.2 % (1.0-4.0); HEMATOCRIT 28.1 % (37.0-47.0); LYMPH # 2.3 10*3/uL (1.3-4.4); LYMPH % 27.9 % (27.0-41.0); MEAN CORPUSCULAR HGB 18.2 pg (27.0-31.0); MEAN CORPUSCULAR HGB CONC 28.5 g/dl (33.0-37.0); MEAN PLATELET VOLUME 9.7 fl (9.6-12.3); MONO # 0.6 10*3/uL (0.1-1.0); MONO % 7.2 % (3.0-9.0); NEUT # 5.1 10*3/uL (2.3-7.9); NEUT % 61.6 % (47.0-73.0); NUCLEATED RED BLOOD CELL 0.5 % (0.0-0.0); PLATELET COUNT AUTOMATED 299 10*3/uL (130-400); RED BLOOD COUNT 4.39 10*6/uL (4.10-5.10); RED CELL DISTRI WIDTH 19.2 % (0-14.5); WHITE BLOOD COUNT 8.2 10*3/uL (4.8-10.8)
[2017-06-16 07:34] LABS: BUN 12 mg/dl (7-24); CHLORIDE 100 mmol/L (98-107); CREATININE 0.59 mg/dL (0.55-1.02); POTASSIUM 3.3 mmol/L (3.5-5.1); SODIUM 140 mmol/L (136-145)
[2017-06-16 10:54] LABS: BF LYMPHOCYTES 7 %; BF MACROPHAGES 85 %; BF NEUTROPHILS 8 %
[2017-06-17] VITALS: BP 124/58
[2017-06-17 07:03] LABS: BASO % 0.2 % (0.0-1.0); HEMATOCRIT 29.8 % (37.0-47.0); HEMOGLOBIN 8.5 g/dl (12.0-16.0); LYMPH # 1.2 10*3/uL (1.3-4.4); LYMPH % 9.6 % (27.0-41.0); MEAN CELL VOLUME 63.8 fl (81.0-99.0); MEAN CORPUSCULAR HGB 18.2 pg (27.0-31.0); MEAN CORPUSCULAR HGB CONC 28.5 g/dl (33.0-37.0); MEAN PLATELET VOLUME 9.4 fl (9.6-12.3); MONO # 0.3 10*3/uL (0.1-1.0); MONO % 2.2 % (3.0-9.0); NEUT # 10.8 10*3/uL (2.3-7.9); NEUT % 87.1 % (47.0-73.0); NUCLEATED RED BLOOD CELL 0.3 % (0.0-0.0); PLATELET COUNT AUTOMATED 341 10*3/uL (130-400); RED BLOOD COUNT 4.67 10*6/uL (4.10-5.10); RED CELL DISTRI WIDTH 19.9 % (0-14.5); WHITE BLOOD COUNT 12.4 10*3/uL (4.8-10.8)
[2017-06-17 07:14] LABS: BUN 10 mg/dl (7-24); CHLORIDE 104 mmol/L (98-107); CREATININE 0.62 mg/dL (0.55-1.02); PHOSPHOROUS 3.6 mg/dL (2.5-4.9); POTASSIUM 3.8 mmol/L (3.5-5.1); SODIUM 141 mmol/L (136-145)
[2017-06-17 08:00] VITALS: BP 126/57
[2017-06-17 12:00] VITALS: BP 131/69
[2017-06-17] MEDS ORDERED: DOXYCYCLINE100 M3 PO (14:47)
[2017-06-17] MEDS ORDERED: PREDNISONE10 MG PO (14:47)
[2017-06-17 15:08] LABS: ACID FAST SMEAR Negative (.); ACID FAST SPEC PROCESSING Concentration (.)
[2017-06-17 16:00] VITALS: BP 136/62
[2017-06-17] MEDS ORDERED: DUONEB 3 MG/3 ML3 M1 INH (16:40)
== END 2017-06-17 17:55 | disposition home or self-care (01) | DRG 264 ==
LOC: ED 20:51 → EDHOLD 23:28 → 5E 23:28
PROVIDERS: Emergency Medicine; Hospitalist; Internal Medicine; Internal Medicine Critical Care Medicine
PROC: 0BBF8ZX Excision of Right Lower Lung Lobe, Via Natural or Artificial Opening Endoscopic, Diagnostic (ICD-10-PCS; principal; 2017-06-16)
PROC: 0B9C8ZX Drainage of Right Upper Lung Lobe, Via Natural or Artificial Opening Endoscopic, Diagnostic (ICD-10-PCS; principal; 2017-06-16)
DX: I11.0 Hypertensive heart disease with heart failure (principal); E66.01 Morbid (severe) obesity due to excess calories; F33.9 Major depressive disorder, recurrent, unspecified; Z68.44 Body mass index [BMI] 60.0-69.9, adult; I50.9 Heart failure, unspecified; J40 Bronchitis, not specified as acute or chronic; E55.9 Vitamin D deficiency, unspecified; K21.9 Gastro-esophageal reflux disease without esophagitis; K59.00 Constipation, unspecified; D56.3 Thalassemia minor; E87.6 Hypokalemia; D50.9 Iron deficiency anemia, unspecified; R73.9 Hyperglycemia, unspecified; Z88.8 Allergy status to other drugs, medicaments and biological substances; Z79.2 Long term (current) use of antibiotics; Z79.899 Other long term (current) drug therapy; Z83.3 Family history of diabetes mellitus; Z82.49 Family history of ischemic heart disease and other diseases of the circulatory system; Z80.1 Family history of malignant neoplasm of trachea, bronchus and lung; Z84.89 Family history of other specified conditions

== ENCOUNTER → 2017-08-03 | Outpatient (CLI) | payer OTHER ==
[~2017-08-03] MED LIST changes: +DOXYCYCLINE100 M3 PO; +DUONEB 3 MG/3 ML3 M1 INH; +IRON325 M1 PO; +PREDNISONE10 MG PO
== END | disposition home or self-care (01) ==
LOC: LAB 09:06
DX: J30.9 Allergic rhinitis, unspecified (principal)

== ENCOUNTER 2017-08-06 17:12 | Emergency (ER) | payer OTHER ==
[~2017-08-06] VITALS: Wt 147.4 kg
[2017-08-06] MEDS ORDERED: CLARITIN10 MG PO (17:34)
[2017-08-06] MEDS ORDERED: POTASSIUM CHLO10 ME5 PO (17:35)
[2017-08-06] MEDS ORDERED: VITAMIN C500 M1 PO (17:36)
[2017-08-06] MEDS ORDERED: PROAIR HFA8.5 GM INH (17:38)
[2017-08-06 18:22] LABS: BASO % 0.2 % (0.0-1.0); EOS # 0.2 10*3/uL (0.0-0.4); EOS % 1.4 % (1.0-4.0); HEMATOCRIT 37.2 % (37.0-47.0); HEMOGLOBIN 10.8 g/dl (12.0-16.0); LYMPH # 1.9 10*3/uL (1.3-4.4); LYMPH % 18.3 % (27.0-41.0); MEAN CELL VOLUME 68.5 fl (81.0-99.0); MEAN CORPUSCULAR HGB 19.9 pg (27.0-31.0); MEAN PLATELET VOLUME 8.7 fl (9.6-12.3); MONO # 0.7 10*3/uL (0.1-1.0); MONO % 6.9 % (3.0-9.0); NEUT # 7.7 10*3/uL (2.3-7.9); NEUT % 72.7 % (47.0-73.0); PLATELET COUNT AUTOMATED 275 10*3/uL (130-400); RED BLOOD COUNT 5.43 10*6/uL (4.10-5.10); RED CELL DISTRI WIDTH 20.2 % (0-14.5); WHITE BLOOD COUNT 10.6 10*3/uL (4.8-10.8)
[2017-08-06 18:36] LABS: ALBUMIN 3.5 gm/dl (3.1-4.5); ALKALINE PHOSPHATASE 53 U/L (45-117); BUN 7 mg/dl (7-24); CHLORIDE 99 mmol/L (98-107); POTASSIUM 3.3 mmol/L (3.5-5.1); SGOT/AST 10 IU/L (3-35); SGPT/ALT 25 U/L (12-78); SODIUM 138 mmol/L (136-145); TOTAL PROTEIN 7.3 gm/dL (6.4-8.2)
[2017-08-06 18:53] LABS: LIPASE 123 U/L (73-393)
[2017-08-06 20:02] LABS: BILIRUBIN NEGATIVE (NEGATIVE); BLOOD NEGATIVE (NEGATIVE); CLARITY CLEAR (CLEAR); COLOR YELLOW (YELLOW); GLUCOSE NEGATIVE (NEGATIVE); KETONE NEGATIVE (NEGATIVE); LEUKO ESTERASE NEGATIVE (NEGATIVE); NITRITE NEGATIVE (NEGATIVE); SPECIFIC GRAVITY <= 1.005 (1.005-1.030); UROBILINOGEN 0.2 E.U./dl (0.2-1.0)
[2017-08-06 20:08] LABS: BACTERIA TRACE
[2017-08-06 20:09] LABS: RBC 0-2 rbc/hpf (0-2); WBC 0-2 wbc/hpf (0-5)
== END 2017-08-06 21:25 | disposition short-term general hospital (02) ==
LOC: ED 17:12
PROVIDERS: Nurse Practitioner
DX: E87.6 Hypokalemia (principal); K56.699 Other intestinal obstruction unspecified as to partial versus complete obstruction; D64.9 Anemia, unspecified; R10.31 Right lower quadrant pain; Z90.49 Acquired absence of other specified parts of digestive tract; Z98.890 Other specified postprocedural states; Z79.899 Other long term (current) drug therapy; Z88.5 Allergy status to narcotic agent; Z88.6 Allergy status to analgesic agent; Z88.8 Allergy status to other drugs, medicaments and biological substances

== ENCOUNTER → 2017-09-01 | Outpatient (CLI) | payer OTHER ==
[~2017-09-01] MED LIST changes: +CLARITIN10 MG PO; +POTASSIUM CHLO10 ME5 PO; +PROAIR HFA8.5 GM INH; +VITAMIN C500 M1 PO
[2017-09-01 14:52] LABS: HEMATOCRIT 35.9 % (37.0-47.0); HEMOGLOBIN 10.7 g/dl (12.0-16.0); MEAN CELL VOLUME 68.3 fl (81.0-99.0); MEAN CORPUSCULAR HGB 20.3 pg (27.0-31.0); MEAN CORPUSCULAR HGB CONC 29.8 g/dl (33.0-37.0); MEAN PLATELET VOLUME 9.2 fl (9.6-12.3); RED BLOOD COUNT 5.26 10*6/uL (4.10-5.10); RED CELL DISTRI WIDTH 16.6 % (0-14.5); WHITE BLOOD COUNT 12.3 10*3/uL (4.8-10.8)
[2017-09-01 15:09] LABS: ALBUMIN 3.4 gm/dl (3.1-4.5); ALKALINE PHOSPHATASE 54 U/L (45-117); BUN 7 mg/dl (7-24); CHLORIDE 101 mmol/L (98-107); CREATININE 0.59 mg/dL (0.55-1.02); POTASSIUM 3.7 mmol/L (3.5-5.1); SGOT/AST 9 IU/L (3-35); SGPT/ALT 21 U/L (12-78); SODIUM 138 mmol/L (136-145); TOTAL PROTEIN 7.5 gm/dL (6.4-8.2)
== END | disposition home or self-care (01) ==
LOC: LAB 14:29
PROVIDERS: Family Medicine
DX: M25.50 Pain in unspecified joint (principal); R05 Cough; R50.9 Fever, unspecified

== ENCOUNTER → 2017-09-11 | Outpatient (CLI) | payer OTHER | LOC: CT 15:46 | DX: J45.909 Unspecified asthma, uncomplicated (principal); R59.1 Generalized enlarged lymph nodes; I10 Essential (primary) hypertension ==

== ENCOUNTER → 2017-09-30 | Outpatient (CLI) | payer OTHER ==
[2017-09-30 09:03] LABS: BASO # 0.1 10*3/uL (0.0-0.1); BASO % 0.6 % (0.0-1.0); EOS # 0.2 10*3/uL (0.0-0.4); EOS % 1.6 % (1.0-4.0); HEMOGLOBIN 10.9 g/dl (12.0-16.0); LYMPH # 3.1 10*3/uL (1.3-4.4); LYMPH % 23.8 % (27.0-41.0); MEAN CELL VOLUME 69.5 fl (81.0-99.0); MEAN CORPUSCULAR HGB 20.5 pg (27.0-31.0); MEAN CORPUSCULAR HGB CONC 29.5 g/dl (33.0-37.0); MEAN PLATELET VOLUME 8.7 fl (9.6-12.3); MONO % 7.4 % (3.0-9.0); NEUT # 8.6 10*3/uL (2.3-7.9); NEUT % 66.1 % (47.0-73.0); PLATELET COUNT AUTOMATED 284 10*3/uL (130-400); RED BLOOD COUNT 5.32 10*6/uL (4.10-5.10); RED CELL DISTRI WIDTH 16.4 % (0-14.5)
== END | disposition home or self-care (01) ==
LOC: LAB 08:50
PROVIDERS: Family Medicine
DX: D72.829 Elevated white blood cell count, unspecified (principal)

== ENCOUNTER 2018-06-07 16:05 | Emergency (ER) | payer OTHER ==
[~2018-06-07] VITALS: Ht 160 cm; Wt 140.6 kg
[2018-06-07 17:03] LABS: BASO % 0.1 % (0.0-1.0); EOS # 0.5 10*3/uL (0.0-0.4); EOS % 4.5 % (1.0-4.0); HEMATOCRIT 40.6 % (37.0-47.0); HEMOGLOBIN 11.7 g/dl (12.0-16.0); LYMPH # 1.5 10*3/uL (1.3-4.4); MEAN CELL VOLUME 67.9 fl (81.0-99.0); MEAN CORPUSCULAR HGB 19.6 pg (27.0-31.0); MEAN CORPUSCULAR HGB CONC 28.8 g/dl (33.0-37.0); MEAN PLATELET VOLUME 8.8 fl (9.6-12.3); MONO # 0.7 10*3/uL (0.1-1.0); MONO % 6.4 % (3.0-9.0); NEUT # 8.6 10*3/uL (2.3-7.9); NEUT % 75.7 % (47.0-73.0); PLATELET COUNT AUTOMATED 308 10*3/uL (130-400); RED BLOOD COUNT 5.98 10*6/uL (4.10-5.10); RED CELL DISTRI WIDTH 17.2 % (0-14.5); WHITE BLOOD COUNT 11.3 10*3/uL (4.8-10.8)
[2018-06-07 17:17] LABS: BILIRUBIN NEGATIVE (NEGATIVE); BLOOD 1+ (NEGATIVE); CLARITY CLEAR (CLEAR); COLOR YELLOW (YELLOW); GLUCOSE NEGATIVE (NEGATIVE); KETONE NEGATIVE (NEGATIVE); LEUKO ESTERASE NEGATIVE (NEGATIVE); NITRITE NEGATIVE (NEGATIVE); SPECIFIC GRAVITY >= 1.030 (1.005-1.030); UROBILINOGEN 0.2 E.U./dl (0.2-1.0)
[2018-06-07 17:17] LABS: ALBUMIN 3.7 gm/dl (3.1-4.5); ALKALINE PHOSPHATASE 64 U/L (45-117); BUN 13 mg/dl (7-24); CHLORIDE 104 mmol/L (98-107); CREATININE 0.69 mg/dL (0.55-1.02); LIPASE 110 U/L (73-393); SGOT/AST 12 IU/L (3-35); SGPT/ALT 23 U/L (12-78); SODIUM 141 mmol/L (136-145)
[2018-06-07 17:39] LABS: BACTERIA TRACE; MUCOUS TRACE; WBC 0-2 wbc/hpf (0-5)
[2018-06-07] MEDS ORDERED: ZOFRAN4 MG PO (18:35)
== END 2018-06-07 18:50 | disposition home or self-care (01) ==
LOC: ED 16:05
PROVIDERS: Physician Assistant
DX: K52.9 Noninfective gastroenteritis and colitis, unspecified (principal); K21.9 Gastro-esophageal reflux disease without esophagitis; Z88.6 Allergy status to analgesic agent; Z88.8 Allergy status to other drugs, medicaments and biological substances; Z79.899 Other long term (current) drug therapy; Z90.49 Acquired absence of other specified parts of digestive tract; Z87.442 Personal history of urinary calculi

== ENCOUNTER → 2018-10-08 | Outpatient (CLI) | payer OTHER ==
[~2018-10-08] MED LIST changes: +B12,B-12,B 12500 MC1 PO; +K-TAB10 MEQ PO; +LASIX40 MG PO; +Motrin,Rufen800 MG PO; +VITAMIN D32000 UNI1 PO; +ZANAFLEX CAPSULE4 MG PO; +ZOFRAN4 MG PO
== END | disposition home or self-care (01) ==
LOC: RAD 17:23
DX: S40.012A Contusion of left shoulder, initial encounter (principal); S43.402A Unspecified sprain of left shoulder joint, initial encounter; S20.20XA Contusion of thorax, unspecified, initial encounter; M19.012 Primary osteoarthritis, left shoulder; V89.2XXA Person injured in unspecified motor-vehicle accident, traffic, initial encounter; Y93.89 Activity, other specified; Y92.89 Other specified places as the place of occurrence of the external cause; Y99.8 Other external cause status

== ENCOUNTER 2018-10-10 16:13 | Inpatient (IN) | payer OTHER ==
[~2018-10-10] VITALS: Ht 160 cm; Wt 152.6 kg
--- NOTE | ~2018-10-10 | EKG ---
[place], [place] ELECTROCARDIOGRAM REPORT NAME: KARI COOPER UNIT #: [id number] ROOM: 428 DOCTOR: JOSSUE DRAFT REPORT BIRTHDATE: [birth year] [facility] Test Date: 2018-10-10 Test Time: 17:05:21 Pat Name: KARI COOPER Department: Room: 428 Gender: F Ice Scraper: FLEX : 1970 Requested By: SCOOTER BOB Order Number: [id number] Reading MD: Clarissa Fay Measurements Intervals [place] Rate: 76 P: 72 MT: 181 QRS: 71 QRSD: 104 T: 37 QT: 441 QTc: 496 Interpretive Statements Sinus rhythm Left atrial enlargement Borderline prolonged QT interval Electronically Signed On 10-11-2018 11:56:44 PDT by Clarissa Fay CM:EKGRPT:ELECTROCARDIOGRAM REPORT 1705 1156 SCOOTER MARCUM DRAFT REPORT SCOOTER DELUNA
--- NOTE | ~2018-10-10 | EKG ---
[place], [place] ELECTROCARDIOGRAM REPORT NAME: KARI COOPER UNIT #: [id number] ROOM: 428 DOCTOR: JOSSUE DRAFT REPORT BIRTHDATE: [birth year] [facility] Test Date: 2018-10-10 Test Time: 22:44:52 Pat Name: KARI COOPER Department: Room: [facility] 1 Gender: F Inspector Purchased Parts: : 1970 Requested By: BRIONNA MACIAS Order Number: [id number] Reading MD: Clarissa Fay Measurements Intervals [place] Rate: 69 P: 63 OR: 180 QRS: 75 QRSD: 113 T: 52 QT: 465 QTc: 499 Interpretive Statements Sinus rhythm Borderline intraventricular conduction delay Borderline prolonged QT interval No previous ECG available for comparison Electronically Signed On 10-11-2018 11:57:22 PDT by Clarissa Fay CM:EKGRPT:ELECTROCARDIOGRAM REPORT [id number] 1157 BRIONNA HOLT DRAFT REPORT BRIONNA MACIAS DO
--- NOTE | ~2018-10-10 | EKG ---
[place], [place] ELECTROCARDIOGRAM REPORT NAME: KARI COOPER UNIT #: [id number] ROOM: 428 DOCTOR: JOSSUE DRAFT REPORT BIRTHDATE: [birth year] 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
[2018-10-10 10:40] VITALS: BP 154/72
[2018-10-10 16:13] VITALS: BP 164/91
[~2018-10-10 16:13] MED LIST changes: -B12,B-12,B 12500 MC1 PO; -K-TAB10 MEQ PO; -LASIX40 MG PO; -Motrin,Rufen800 MG PO; -VITAMIN D32000 UNI1 PO; -ZANAFLEX CAPSULE4 MG PO
[2018-10-10 17:01] LABS: BASO # 0.1 10*3/uL (0.0-0.1); BASO % 0.5 % (0.0-1.0); EOS # 0.4 10*3/uL (0.0-0.4); EOS % 3.7 % (1.0-4.0); HEMATOCRIT 32.3 % (37.0-47.0); HEMOGLOBIN 9.5 g/dl (12.0-16.0); LYMPH # 2.5 10*3/uL (1.3-4.4); LYMPH % 25.1 % (27.0-41.0); MEAN CELL VOLUME 67.4 fl (81.0-99.0); MEAN CORPUSCULAR HGB 19.8 pg (27.0-31.0); MEAN CORPUSCULAR HGB CONC 29.4 g/dl (33.0-37.0); MEAN PLATELET VOLUME 9.1 fl (9.6-12.3); MONO # 0.6 10*3/uL (0.1-1.0); MONO % 6.3 % (3.0-9.0); NEUT # 6.4 10*3/uL (2.3-7.9); NEUT % 64.2 % (47.0-73.0); PLATELET COUNT AUTOMATED 295 10*3/uL (130-400); RED BLOOD COUNT 4.79 10*6/uL (4.10-5.10); RED CELL DISTRI WIDTH 16.3 % (0-14.5); WHITE BLOOD COUNT 9.9 10*3/uL (4.8-10.8)
[2018-10-10 17:14] LABS: ACT PARTIAL THROMBO TIME 24.9 SECONDS (20.0-32.1)
[2018-10-10 17:20] LABS: ALBUMIN 3.4 gm/dl (3.1-4.5); ALKALINE PHOSPHATASE 53 U/L (45-117); BUN 11 mg/dl (7-24); CHLORIDE 105 mmol/L (98-107); CREATININE 0.72 mg/dL (0.55-1.02); LIPASE 108 U/L (73-393); POTASSIUM 3.8 mmol/L (3.5-5.1); SGOT/AST 11 IU/L (3-35); SGPT/ALT 17 U/L (12-78); SODIUM 139 mmol/L (136-145); TOTAL PROTEIN 7.1 gm/dL (6.4-8.2)
[2018-10-10 17:21] LABS: TROPONIN I < 0.015 ng/ml (<0.045)
[2018-10-10 18:39] LABS: BILIRUBIN NEGATIVE (NEGATIVE); BLOOD NEGATIVE (NEGATIVE); CLARITY CLEAR (CLEAR); COLOR YELLOW (YELLOW); GLUCOSE NEGATIVE (NEGATIVE); KETONE NEGATIVE (NEGATIVE); LEUKO ESTERASE NEGATIVE (NEGATIVE); NITRITE NEGATIVE (NEGATIVE); SPECIFIC GRAVITY <= 1.005 (1.005-1.030); UROBILINOGEN 0.2 E.U./dl (0.2-1.0)
[2018-10-10 18:50] LABS: RBC 0-2 rbc/hpf (0-2); WBC 0-2 wbc/hpf (0-5)
[2018-10-10 19:25] VITALS: BP 146/68
[2018-10-10 22:15] VITALS: BP 169/91
--- NOTE | 2018-10-10 22:15 | NUR ---
A 48, admitted to , under the services of JEANETTE Elizabeth DO with a diagnosis of ANEMIA, CHEST WALL MUSCLE STRAIN,NEW ONSET CHF. Chief complaint is LEFT SHOULDER & PLANK PAIN. Patient arrived via wheel chair from ER. Monitor applied. Initial assessment completed. Vital signs taken and recorded. JEANETTE ELIZABETH DO notified of admission to the unit. Orders received. See assessment for past medical history, medications and allergies. Patient and/or family oriented to unit. [facility] visitation policy reviewed. Clothing/patient valuable form completed. EVAN ROBERTS
[2018-10-10] MEDS ORDERED: LASIX20 MG PO (23:17)
[2018-10-10] MEDS ORDERED: COZAAR25 M1 PO (23:18)
[2018-10-10] MEDS ORDERED: K-TAB10 MEQ PO (23:20)
[2018-10-10] MEDS ORDERED: Motrin,Rufen800 MG PO (23:21)
[2018-10-10] MEDS ORDERED: ZANAFLEX CAPSULE4 MG PO (23:24)
--- NOTE | 2018-10-10 23:25 | NUR ---
DR MACIAS CALLED AND MADE AWARE THAT HOME MEDICATIONS ARE UP TO DATE.
[2018-10-11] VITALS: BP 147/77
--- NOTE | 2018-10-11 03:19 | NUR ---
PATIENT C/O HEADACHE AND LEFT SIDE FLANK PAIN RATED 7/10 ON 0/10 SCALE. NORCO ADMINISTERED PRESCRIBED. WILL MONITOR FOR EFFECTIVENESS.
--- NOTE | 2018-10-11 04:19 | NUR ---
PATIENT STATES THAT NORCO HELPED PAIN, RATES 4/10 ON 0/10 SCALE. WILL CONTINUE TO MONITOR.
[2018-10-11 06:09] LABS: BASO # 0.1 10*3/uL (0.0-0.1); BASO % 0.6 % (0.0-1.0); EOS # 0.4 10*3/uL (0.0-0.4); EOS % 4.7 % (1.0-4.0); HEMATOCRIT 35.3 % (37.0-47.0); LYMPH # 2.3 10*3/uL (1.3-4.4); LYMPH % 27.5 % (27.0-41.0); MEAN CELL VOLUME 68.7 fl (81.0-99.0); MEAN CORPUSCULAR HGB 19.5 pg (27.0-31.0); MEAN CORPUSCULAR HGB CONC 28.3 g/dl (33.0-37.0); MEAN PLATELET VOLUME 9.6 fl (9.6-12.3); MONO # 0.6 10*3/uL (0.1-1.0); MONO % 6.6 % (3.0-9.0); NEUT # 5.2 10*3/uL (2.3-7.9); NEUT % 60.5 % (47.0-73.0); PLATELET COUNT AUTOMATED 299 10*3/uL (130-400); RED BLOOD COUNT 5.14 10*6/uL (4.10-5.10); RED CELL DISTRI WIDTH 16.7 % (0-14.5); WHITE BLOOD COUNT 8.5 10*3/uL (4.8-10.8)
[2018-10-11 06:37] LABS: ALBUMIN 3.6 gm/dl (3.1-4.5); ALKALINE PHOSPHATASE 57 U/L (45-117); BUN 10 mg/dl (7-24); CHLORIDE 102 mmol/L (98-107); CHOLESTEROL 106 mg/dL (<200); CREATININE 0.76 mg/dL (0.55-1.02); FREE T4 1.32 ng/dl (0.76-1.46); HDL CHOLESTEROL 44 mg/dl (40-60); LDL CHOLESTEROL 45 mg/dL (9-159); PHOSPHOROUS 5.3 mg/dL (2.5-4.9); POTASSIUM 3.7 mmol/L (3.5-5.1); SGOT/AST 12 IU/L (3-35); SGPT/ALT 19 U/L (12-78); SODIUM 141 mmol/L (136-145); TOTAL PROTEIN 7.5 gm/dL (6.4-8.2); TRIGLYCERIDES 87 mg/dl (<150); VLDL CHOLESTEROL 17 mg/dL (6-40)
--- NOTE | 2018-10-11 06:38 | NUR ---
PATIENT C/O HEADACHE AND NAUSEA. MEDICATED WITH TYLENOL AND ZOFRAN PRESCRIBED. WILL MONITOR FOR EFFECTIVENESS.
[2018-10-11 07:25] LABS: ACT PARTIAL THROMBO TIME 25.9 SECONDS (20.0-32.1)
[2018-10-11 07:51] LABS: VITAMIN D, 25-HYDROXY 25.4 ng/mL (30-100)
--- NOTE | 2018-10-11 08:00 | NUR ---
Patient reports she had one episode of emesis in trash can.
--- NOTE | 2018-10-11 10:47 | NUR ---
Gipsy given per patient request for pain rated 7/10 in her left side, knees and shoulders. Will monitor.
--- NOTE | 2018-10-11 11:30 | NUR ---
Harsh effective. Patient satisfied.
[2018-10-11 12:00] VITALS: BP 136/89
--- NOTE | 2018-10-11 13:55 | NUR ---
Spoke with Dr. Shields regarding patients concern of complications with her hernia because she has had 3 episodes of emesis and has not had a bowel movement since yesterday. No new orders at this time.
--- NOTE | 2018-10-11 14:05 | NUR ---
Zofran given per patient request for c/o N/V. Patients bowel sounds are normoactive x4Q. Emesis is not visable to determine if it is abnormal. [place] was given to patient if another episode occur, emesis can be assessed.
--- NOTE | 2018-10-11 14:34 | NUR ---
Zofran not effective. Patient had another episode of emesis. Emesis appeared normal. No signs of coffee ground emesis. Will continue to monitor patient.
[2018-10-11 16:00] VITALS: BP 138/71
--- NOTE | 2018-10-11 16:56 | NUR ---
Notified Dr. Ramirez that patient SpO2 was down to 70% on room air. Patient was asleep in the chair at the time. Patient did rebound only when directed to sit completely upright. She rebounded to 96% on room air but quickly desatted to the 80's. I had the patient go to bed and placed her on 2L O2 and monitored. Patient remained at 96% on 2L. See new orders.
--- NOTE | 2018-10-11 19:50 | NUR ---
PATIENT AWAKE AND ALERT SITTING IN BED AT THIS TIME. C/O NAUSEA AND VOMITING. PATIENT REFUSES TO BE MEDICATED WITH NAUSEA MEDICATION AT THIS TIME. DENIES ANY PAIN IN LEFT SHOULDER/FLANK/CHEST AT THIS TIME. PATIENT WANTING TO REST AT THIS TIME. PULSE OX PLACED ON FINGER. WILL MONITOR.
[2018-10-11 20:00] VITALS: BP 158/68; BP 176/84
--- NOTE | 2018-10-11 20:00 | NUR ---
EMESIS BASIN NOTED TO HAVE 150CC OF YELLOW EMESIS. PATIENT STILL C/O NAUSEA AND VOMITING. DOES NOT WANT TO TAKE ANY MEDICATIONS AT THIS TIME- STATES THAT SHE THINKS THEY ARE MAKING HER SICK. WILL CONTINUE TO MONITOR.
--- NOTE | 2018-10-11 20:35 | NUR ---
PATIENT NOTED TO BE 83% ON PULSE OX. PATIENT RESTING WITH EYES CLOSED ON ROOM AIR. STATED THAT SHE WAS JUST UP TO THE RESTROOM.2LNC PLACED ON PATIENT. PULSE OX INCREAED TO 93-95%. WILL CONTINUE TO MONITOR.
--- NOTE | 2018-10-11 23:20 | NUR ---
PHYSICIAN ASSISTANT CALLED, PATIENT OFF PULSE OX. PATIENT IN BATHROOM AT THIS TIME. PATIENT C/O FEELING HOT. TEMP 98.3 ORALLY AT THIS TIME. PULSE OX 75% ON ROOM AIR. 2LNC PLACED BACK ON PATIENT SPO2 INCREASED TO 92%. PATIENT DOES STATE SHE FEELS SHORT OF BREATH FROM BEING UP TO THE RESTROOM. INFORMED THAT PATIENT NEEDS TO LEAVE ON OXYGEN WHEN UP TO BATHROOM. PATIENT STILL C/O NAUSEA. PATIENT DECLINES TO HAVE ANY MEDICATIONS AT THIS TIME. ICE CHIPS AND POPCICLE PROVIDED REQUESTED. WILL CONTINUE TO MONITOR.
[2018-10-12] VITALS: BP 175/90
--- NOTE | 2018-10-12 00:34 | NUR ---
PATIENT STILL C/O NAUSEA AND VOMITING. AGREEABLE AT THIS TIME TO TAKE ZOFRAN. ADMINISTERED PRESCRIBED. WILL MONITOR FOR EFFECTIVENESS.
--- NOTE | 2018-10-12 00:48 | NUR ---
DR CARMEN CALLED ABOUT PATIENT'S BP 175/90 AND PATIENT STLL HAVING NAUSEA AND VOMITING. NEW ORDER RECEIVED- SEE EMAR.
--- NOTE | 2018-10-12 01:20 | NUR ---
PATIENT RESTING IN CHAIR WITH EYES CLOSED AT THIS TIME. RESPIRATIONS EASY AND UNLABORED ON 2LNC. SpO2 93%. REGLAN NOT ADMINISTERED AT THIS TIME-DUE TO PATIENT SLEEPING. WILL CONTINUE TO MONITOR.
--- NOTE | 2018-10-12 02:12 | NUR ---
PATIENT RESTING WITH EYES CLOSED IN CHAIR AT THIS TIME. RESPIRATIONS EASY AND UNLABORED ON 2LNC. SpO2 91-96%. WILL CONTINUE TO MONITOR.
[2018-10-12 06:24] LABS: BASO # 0.1 10*3/uL (0.0-0.1); BASO % 0.6 % (0.0-1.0); EOS # 0.1 10*3/uL (0.0-0.4); EOS % 0.8 % (1.0-4.0); HEMATOCRIT 35.1 % (37.0-47.0); LYMPH # 2.2 10*3/uL (1.3-4.4); LYMPH % 21.6 % (27.0-41.0); MEAN CELL VOLUME 67.4 fl (81.0-99.0); MEAN CORPUSCULAR HGB 19.2 pg (27.0-31.0); MEAN CORPUSCULAR HGB CONC 28.5 g/dl (33.0-37.0); MEAN PLATELET VOLUME 9.3 fl (9.6-12.3); MONO # 0.7 10*3/uL (0.1-1.0); MONO % 6.8 % (3.0-9.0); NEUT # 7.1 10*3/uL (2.3-7.9); PLATELET COUNT AUTOMATED 306 10*3/uL (130-400); RED BLOOD COUNT 5.21 10*6/uL (4.10-5.10); RED CELL DISTRI WIDTH 16.1 % (0-14.5); WHITE BLOOD COUNT 10.1 10*3/uL (4.8-10.8)
[2018-10-12 06:40] LABS: ALBUMIN 3.8 gm/dl (3.1-4.5); BUN 12 mg/dl (7-24); CHLORIDE 98 mmol/L (98-107); CREATININE 0.69 mg/dL (0.55-1.02); PHOSPHOROUS 5.1 mg/dL (2.5-4.9); POTASSIUM 3.3 mmol/L (3.5-5.1); SGOT/AST 13 IU/L (3-35); SGPT/ALT 18 U/L (12-78); SODIUM 140 mmol/L (136-145); TOTAL PROTEIN 7.7 gm/dL (6.4-8.2)
[2018-10-12 06:41] LABS: ALKALINE PHOSPHATASE 58 U/L (45-117)
[2018-10-12 08:00] VITALS: BP 146/70
--- NOTE | 2018-10-12 09:00 | NUR ---
Station Mechanic Helper in to talk to patient. Patient states lives at home with family. There are few steps in the home. Physician: tiffanie mcfarland [facility]: none Patient's level of ADLs: INDEPENDENT Patient has working utilities: all working DME: [employer] Follow-up physician's appointment after d/c: will be made by hospitalist nurse director upon discharge Does patient want to access PORTAL?: no Discharge plan discussed with patient, patient lives at home with family, she is independent in adls and ambulation, patient states she will be going home when able and denies any home needs. ARTIE HURST
[2018-10-12 12:00] VITALS: BP 141/62
--- NOTE | 2018-10-12 12:17 | NUR ---
Notified Dr. Perez of potassium level. See labs. No new orders.
[2018-10-12 16:00] VITALS: BP 143/72
[2018-10-12] MEDS ORDERED: LASIX40 MG PO (17:04)
[2018-10-12] MEDS ORDERED: KLOR-CON M2020 ME1 PO (17:04)
[2018-10-12] MEDS ORDERED: VITAMIN D32000 UNI1 PO (17:04)
[2018-10-12] MEDS ORDERED: B12,B-12,B 12500 MC1 PO (17:04)
--- NOTE | 2018-10-12 17:45 | NUR ---
Discharge instructions reviewed with patient/family. Patient receptive and verbalizes understanding. Follow-up care arranged. Written instructions given to patient/family. Patient was educated on changes with medications and follow up visit with pcp. Patient ambulated from unit with all personal belongings accounted for. J LUIS KO
== END 2018-10-12 17:45 | disposition home or self-care (01) | DRG 563 ==
LOC: ED 16:13 → EDHOLD 20:35 → 4E 20:35
PROVIDERS: Family Medicine; Internal Medicine; Physician Assistant; ADMIT Internal Medicine
DX: S29.011A Strain of muscle and tendon of front wall of thorax, initial encounter (principal); Z68.44 Body mass index [BMI] 60.0-69.9, adult; D50.9 Iron deficiency anemia, unspecified; R73.9 Hyperglycemia, unspecified; F32.9 Major depressive disorder, single episode, unspecified; K21.9 Gastro-esophageal reflux disease without esophagitis; E66.01 Morbid (severe) obesity due to excess calories; E83.39 Other disorders of phosphorus metabolism; E74.39 Other disorders of intestinal carbohydrate absorption; R09.89 Other specified symptoms and signs involving the circulatory and respiratory systems; I87.2 Venous insufficiency (chronic) (peripheral); I11.0 Hypertensive heart disease with heart failure; I50.9 Heart failure, unspecified; V43.52XA Car driver injured in collision with other type car in traffic accident, initial encounter; Y99.8 Other external cause status; Y93.89 Activity, other specified; Y92.488 Other paved roadways as the place of occurrence of the external cause; Z88.6 Allergy status to analgesic agent; Z88.8 Allergy status to other drugs, medicaments and biological substances; Z90.49 Acquired absence of other specified parts of digestive tract; Z98.891 History of uterine scar from previous surgery; Z87.442 Personal history of urinary calculi; Z82.49 Family history of ischemic heart disease and other diseases of the circulatory system; Z83.79 Family history of other diseases of the digestive system; Z83.3 Family history of diabetes mellitus; Z84.89 Family history of other specified conditions; Z80.1 Family history of malignant neoplasm of trachea, bronchus and lung; Z82.5 Family history of asthma and other chronic lower respiratory diseases; Z79.899 Other long term (current) drug therapy

== ENCOUNTER 2019-06-13 17:51 | Emergency (ER) | payer OTHER ==
[~2019-06-13] VITALS: Ht 160 cm; Wt 149.7 kg
[~2019-06-13 17:51] MED LIST changes: +B12,B-12,B 12500 MC1 PO; +K-TAB10 MEQ PO; +LASIX40 MG PO; +Motrin,Rufen800 MG PO; +VITAMIN D32000 UNI1 PO; +ZANAFLEX CAPSULE4 MG PO
== END 2019-06-13 18:50 | disposition home or self-care (01) ==
LOC: ED 17:51
DX: M54.5 Low back pain (principal); M54.6 Pain in thoracic spine; R60.0 Localized edema; I10 Essential (primary) hypertension; K21.9 Gastro-esophageal reflux disease without esophagitis; F41.9 Anxiety disorder, unspecified; F32.9 Major depressive disorder, single episode, unspecified; Z88.8 Allergy status to other drugs, medicaments and biological substances; Z79.899 Other long term (current) drug therapy; Z90.49 Acquired absence of other specified parts of digestive tract; X58.XXXA Exposure to other specified factors, initial encounter; Y93.89 Activity, other specified; Y92.411 Interstate highway as the place of occurrence of the external cause; Y99.8 Other external cause status

== ENCOUNTER → 2019-09-13 | Outpatient (CLI) | payer OTHER | END | disposition home or self-care (01) | LOC: RAD 14:04 | DX: I51.7 Cardiomegaly (principal) ==

== ENCOUNTER → 2019-10-11 | Outpatient (CLI) | payer OTHER ==
[2019-10-11 14:14] LABS: ABG BASE EXCESS 2.5 mmol/L (-2.0-2.0); ARTERIAL BLOOD GAS PH 7.393 (7.35-7.45)
[2019-10-11 14:22] LABS: BUN 15 mg/dl (7-24); CHLORIDE 106 mmol/L (98-107); CREATININE 0.61 mg/dL (0.55-1.02); POTASSIUM 3.7 mmol/L (3.5-5.1); SODIUM 141 mmol/L (136-145)
== END | disposition home or self-care (01) ==
LOC: LAB 13:34
PROVIDERS: Internal Medicine Critical Care Medicine
DX: J96.91 Respiratory failure, unspecified with hypoxia (principal)

== ENCOUNTER → 2019-12-15 | Outpatient (CLI) | payer OTHER | END | disposition home or self-care (01) | LOC: COVID19 00:37 | DX: U07.1 COVID-19 (principal) ==

== ENCOUNTER → 2020-03-08 | Outpatient (CLI) | payer OTHER | END | disposition home or self-care (01) | LOC: CARD 03-07 08:30 | PROVIDERS: ATTEND Internal Medicine Cardiovascular Disease | DX: R06.02 Shortness of breath (principal) ==

== ENCOUNTER → 2020-06-07 | Outpatient (CLI) | payer OTHER ==
[2020-06-07 15:58] LABS: HEMATOCRIT 31.7 % (37.0-47.0); MEAN CELL VOLUME 62.4 fl (81.0-99.0); MEAN CORPUSCULAR HGB 17.1 pg (27.0-31.0); MEAN CORPUSCULAR HGB CONC 27.4 g/dl (33.0-37.0); MEAN PLATELET VOLUME 8.8 fl (9.6-12.3); NUCLEATED RED BLOOD CELL 0.2 % (0.0-0.0); PLATELET COUNT AUTOMATED 366 10*3/uL (130-400); RED BLOOD COUNT 5.08 10*6/uL (4.10-5.10); RED CELL DISTRI WIDTH 17.6 % (0-14.5); RETICULOCYTE % 1.98 % (0.50-2.50)
[2020-06-07 16:08] LABS: BILIRUBIN Negative (Negative); BLOOD Negative (Negative); CLARITY Clear (Clear); COLOR Yellow (Yellow); GLUCOSE Negative (Negative); KETONE Negative (Negative); LEUKO ESTERASE Trace (Negative); NITRITE Negative (Negative); PH 5.5 (4.5-8.0); SPECIFIC GRAVITY 1.015 (1.001-1.030); UROBILINOGEN 0.2 E.U./dl (0.0-1.0)
[2020-06-07 16:14] LABS: ALBUMIN 3.7 gm/dl (3.1-4.5); ALKALINE PHOSPHATASE 73 U/L (45-117); BUN 18 mg/dl (7-24); CHLORIDE 103 mmol/L (98-107); CHOLESTEROL 124 mg/dL (<200); CREATININE 0.75 mg/dL (0.55-1.02); GAMMA GLUTAMYL TRANSPEPTIDASE 16 U/L (5-55); HDL CHOLESTEROL 47 mg/dl (40-60); IRON 27 ug/dL (50-170); LDL CHOLESTEROL 60 mg/dL (9-159); SGOT/AST 14 IU/L (3-35); SGPT/ALT 21 U/L (12-78); SODIUM 138 mmol/L (136-145); TOTAL IRON BINDING CAPACITY 482 ug/dl (250-450); TOTAL PROTEIN 7.9 gm/dL (6.4-8.2); TRIGLYCERIDES 87 mg/dl (<150); VLDL CHOLESTEROL 17 mg/dL (6-40)
[2020-06-07 16:23] LABS: BASOPHILS 1 % (0-1); PLATELET SUFFICIENCY NORMAL (NORMAL); TOTAL CELLS COUNTED 100 #CELLS
[2020-06-07 16:24] LABS: OVALOCYTES FEW; POLYCHROMASIA SLIGHT
[2020-06-07 16:26] LABS: BACTERIA 1+; MUCOUS TRACE
[2020-06-07 16:39] LABS: VITAMIN D, 25-HYDROXY 16.3 ng/mL (30-100)
[2020-06-07 16:40] LABS: FERRITIN 9.8 ng/mL (10.0-291.0)
== END | disposition home or self-care (01) ==
LOC: LAB 15:36
PROVIDERS: ATTEND Family Medicine
DX: R79.89 Other specified abnormal findings of blood chemistry (principal); R53.83 Other fatigue; E55.9 Vitamin D deficiency, unspecified

== ENCOUNTER → 2020-08-17 | Outpatient (CLI) | payer OTHER ==
[2020-08-17 08:27] LABS: BASO # 0.1 10*3/uL (0.0-0.1); BASO % 0.8 % (0.0-1.0); EOS # 0.3 10*3/uL (0.0-0.4); EOS % 2.7 % (1.0-4.0); HEMATOCRIT 34.7 % (37.0-47.0); LYMPH # 2.1 10*3/uL (1.3-4.4); LYMPH % 20.4 % (27.0-41.0); MEAN CELL VOLUME 67.4 fl (81.0-99.0); MEAN CORPUSCULAR HGB 18.8 pg (27.0-31.0); MEAN PLATELET VOLUME 9.1 fl (9.6-12.3); MONO # 0.6 10*3/uL (0.1-1.0); MONO % 6.2 % (3.0-9.0); NEUT # 7.1 10*3/uL (2.3-7.9); NEUT % 69.5 % (47.0-73.0); PLATELET COUNT AUTOMATED 296 10*3/uL (130-400); RED BLOOD COUNT 5.15 10*6/uL (4.10-5.10); RED CELL DISTRI WIDTH 22.3 % (0-14.5); WHITE BLOOD COUNT 10.2 10*3/uL (4.8-10.8)
[2020-08-17 08:29] LABS: BILIRUBIN Negative (Negative); BLOOD Negative (Negative); CLARITY Clear (Clear); COLOR Yellow (Yellow); GLUCOSE Negative (Negative); KETONE Negative (Negative); LEUKO ESTERASE 1+ (Negative); NITRITE Negative (Negative); SPECIFIC GRAVITY 1.025 (1.001-1.030); UROBILINOGEN 0.2 E.U./dl (0.0-1.0)
[2020-08-17 08:44] LABS: ALBUMIN 3.5 gm/dl (3.1-4.5); ALKALINE PHOSPHATASE 63 U/L (45-117); BUN 17 mg/dl (7-24); CHLORIDE 106 mmol/L (98-107); CHOLESTEROL 125 mg/dL (<200); CPK 38 U/L (26-192); CREATININE 0.67 mg/dL (0.55-1.02); GAMMA GLUTAMYL TRANSPEPTIDASE 14 U/L (5-55); HDL CHOLESTEROL 44 mg/dl (40-60); IRON 92 ug/dL (50-170); LDL CHOLESTEROL 62 mg/dL (9-159); POTASSIUM 3.9 mmol/L (3.5-5.1); SGOT/AST 17 IU/L (3-35); SGPT/ALT 29 U/L (12-78); SODIUM 139 mmol/L (136-145); TOTAL IRON BINDING CAPACITY 302 ug/dl (250-450); TOTAL PROTEIN 7.8 gm/dL (6.4-8.2); TRIGLYCERIDES 95 mg/dl (<150); VLDL CHOLESTEROL 19 mg/dL (6-40)
[2020-08-17 10:14] LABS: FERRITIN 61.6 ng/mL (10.0-291.0)
[2020-08-17 10:15] LABS: VITAMIN D, 25-HYDROXY 21.9 ng/mL (30-100)
[2020-08-17 10:32] LABS: BACTERIA 1+; MUCOUS 1+
== END | disposition home or self-care (01) ==
LOC: LAB 07:58
PROVIDERS: ATTEND Family Medicine
DX: E78.5 Hyperlipidemia, unspecified (principal); R79.89 Other specified abnormal findings of blood chemistry; R53.83 Other fatigue; R74.8 Abnormal levels of other serum enzymes; J40 Bronchitis, not specified as acute or chronic; E55.9 Vitamin D deficiency, unspecified

== ENCOUNTER → 2020-11-10 | Outpatient (CLI) | payer OTHER ==
[2020-11-10 15:23] LABS: BASO # 0.1 10*3/uL (0.0-0.1); BASO % 0.5 % (0.0-1.0); EOS # 0.1 10*3/uL (0.0-0.4); EOS % 1.2 % (1.0-4.0); HEMATOCRIT 38.9 % (37.0-47.0); LYMPH # 2.9 10*3/uL (1.3-4.4); MEAN CELL VOLUME 68.7 fl (81.0-99.0); MEAN CORPUSCULAR HGB 20.3 pg (27.0-31.0); MEAN CORPUSCULAR HGB CONC 29.6 g/dl (33.0-37.0); MEAN PLATELET VOLUME 9.6 fl (9.6-12.3); MONO # 0.7 10*3/uL (0.1-1.0); MONO % 5.8 % (3.0-9.0); NEUT # 7.4 10*3/uL (2.3-7.9); NEUT % 66.1 % (47.0-73.0); PLATELET COUNT AUTOMATED 300 10*3/uL (130-400); RED BLOOD COUNT 5.66 10*6/uL (4.10-5.10); RED CELL DISTRI WIDTH 15.4 % (0-14.5); WHITE BLOOD COUNT 11.2 10*3/uL (4.8-10.8)
[2020-11-10 15:52] LABS: ALBUMIN 3.8 gm/dl (3.1-4.5); ALKALINE PHOSPHATASE 69 U/L (45-117); BUN 12 mg/dl (7-24); CHLORIDE 105 mmol/L (98-107); CREATININE 0.71 mg/dL (0.55-1.02); IRON 56 ug/dL (50-170); POTASSIUM 3.6 mmol/L (3.5-5.1); SGOT/AST 17 IU/L (3-35); SGPT/ALT 38 U/L (12-78); SODIUM 136 mmol/L (136-145); TOTAL IRON BINDING CAPACITY 312 ug/dl (250-450); TOTAL PROTEIN 8.1 gm/dL (6.4-8.2)
== END | disposition home or self-care (01) ==
LOC: LAB 14:42
PROVIDERS: ATTEND Nurse Practitioner Adult Health
DX: D50.9 Iron deficiency anemia, unspecified (principal)

== ENCOUNTER → 2021-04-19 | Outpatient (CLI) | payer OTHER ==
[2021-04-19 17:08] LABS: BASO # 0.1 10*3/uL (0.0-0.1); BASO % 0.4 % (0.0-1.0); EOS # 0.2 10*3/uL (0.0-0.4); EOS % 1.5 % (1.0-4.0); HEMATOCRIT 37.1 % (37.0-47.0); LYMPH # 3.1 10*3/uL (1.3-4.4); LYMPH % 25.9 % (27.0-41.0); MEAN CELL VOLUME 66.8 fl (81.0-99.0); MEAN CORPUSCULAR HGB 20.4 pg (27.0-31.0); MEAN CORPUSCULAR HGB CONC 30.5 g/dl (33.0-37.0); MEAN PLATELET VOLUME 9.8 fl (9.6-12.3); MONO # 0.6 10*3/uL (0.1-1.0); MONO % 4.9 % (3.0-9.0); NEUT # 7.9 10*3/uL (2.3-7.9); NEUT % 66.8 % (47.0-73.0); PLATELET COUNT AUTOMATED 296 10*3/uL (130-400); RED BLOOD COUNT 5.55 10*6/uL (4.10-5.10); RED CELL DISTRI WIDTH 14.9 % (0-14.5); RETICULOCYTE % 2.39 % (0.50-2.50); WHITE BLOOD COUNT 11.8 10*3/uL (4.8-10.8)
[2021-04-19 17:11] LABS: BILIRUBIN Negative (Negative); BLOOD Trace-Lysed (Negative); CLARITY Clear (Clear); COLOR Yellow (Yellow); GLUCOSE Negative (Negative); KETONE Negative (Negative); LEUKO ESTERASE Trace (Negative); NITRITE Negative (Negative)
[2021-04-19 17:21] LABS: BACTERIA TRACE; MUCOUS TRACE; RBC 0-2 rbc/hpf (0-2)
[2021-04-19 17:23] LABS: ALBUMIN 3.7 gm/dl (3.1-4.5); ALKALINE PHOSPHATASE 65 U/L (45-117); BUN 8 mg/dl (7-24); CHLORIDE 102 mmol/L (98-107); CHOLESTEROL 118 mg/dL (<200); CREATININE 0.64 mg/dL (0.55-1.02); GAMMA GLUTAMYL TRANSPEPTIDASE 22 U/L (5-55); IRON 47 ug/dL (50-170); LDL CHOLESTEROL 53 mg/dL (9-159); POTASSIUM 2.9 mmol/L (3.5-5.1); SGOT/AST 13 IU/L (3-35); SGPT/ALT 28 U/L (12-78); SODIUM 141 mmol/L (136-145); TOTAL IRON BINDING CAPACITY 316 ug/dl (250-450); TOTAL PROTEIN 8.3 gm/dL (6.4-8.2); TRIGLYCERIDES 96 mg/dl (<150)
== END | disposition home or self-care (01) ==
LOC: LAB 16:24
PROVIDERS: ATTEND Family Medicine
DX: R79.89 Other specified abnormal findings of blood chemistry (principal); R53.83 Other fatigue; E78.5 Hyperlipidemia, unspecified

== ENCOUNTER → 2021-04-30 | Outpatient (CLI) | payer OTHER | END | disposition home or self-care (01) | LOC: MAMMO 00:26 | PROVIDERS: ATTEND Family Medicine | DX: Z12.31 Encounter for screening mammogram for malignant neoplasm of breast (principal) ==

== ENCOUNTER → 2021-07-17 | Outpatient (CLI) | payer OTHER ==
[2021-07-17 17:55] LABS: BUN 17 mg/dl (7-24); CHLORIDE 105 mmol/L (98-107); POTASSIUM 3.8 mmol/L (3.5-5.1); SGOT/AST 14 IU/L (3-35); SGPT/ALT 31 U/L (12-78); SODIUM 140 mmol/L (136-145); TOTAL PROTEIN 7.6 gm/dL (6.4-8.2)
[2021-07-17 17:57] LABS: ALKALINE PHOSPHATASE 63 U/L (45-117); CREATININE 0.64 mg/dL (0.55-1.02)
== END | disposition home or self-care (01) ==
LOC: LAB 16:50
PROVIDERS: ATTEND Family Medicine
DX: E78.5 Hyperlipidemia, unspecified (principal); R79.89 Other specified abnormal findings of blood chemistry; R53.83 Other fatigue

== ENCOUNTER → 2022-05-09 | Outpatient (CLI) | payer OTHER ==
[2022-05-09 15:19] LABS: BASO # 0.1 10*3/uL (0.0-0.1); BASO % 0.5 % (0.0-1.0); EOS # 0.2 10*3/uL (0.0-0.4); EOS % 1.7 % (1.0-4.0); HEMATOCRIT 37.3 % (37.0-47.0); LYMPH % 21.1 % (27.0-41.0); MEAN CELL VOLUME 64.4 fl (81.0-99.0); MEAN CORPUSCULAR HGB 19.2 pg (27.0-31.0); MEAN CORPUSCULAR HGB CONC 29.8 g/dl (33.0-37.0); MEAN PLATELET VOLUME 9.2 fl (9.6-12.3); MONO # 0.6 10*3/uL (0.1-1.0); MONO % 6.7 % (3.0-9.0); NEUT # 6.6 10*3/uL (2.3-7.9); NEUT % 69.6 % (47.0-73.0); PLATELET COUNT AUTOMATED 313 10*3/uL (130-400); RED BLOOD COUNT 5.79 10*6/uL (4.10-5.10); RED CELL DISTRI WIDTH 16.3 % (0-14.5); WHITE BLOOD COUNT 9.5 10*3/uL (4.8-10.8)
[2022-05-09 15:25] LABS: BILIRUBIN Negative (Negative); BLOOD Negative (Negative); CLARITY Clear (Clear); COLOR Yellow (Yellow); GLUCOSE Negative (Negative); KETONE Negative (Negative); LEUKO ESTERASE Negative (Negative); NITRITE Negative (Negative); PH 6.5 (4.5-8.0); SPECIFIC GRAVITY 1.015 (1.001-1.030)
[2022-05-09 15:36] LABS: WBC 0-2 wbc/hpf (0-5)
[2022-05-09 15:43] LABS: ALKALINE PHOSPHATASE 65 U/L (46-116); BUN 11 mg/dl (9-23); CHLORIDE 103 mmol/L (98-107); CHOLESTEROL 122 mg/dL (<200); CREATININE 0.75 mg/dL (0.55-1.02); GAMMA GLUTAMYL TRANSPEPTIDASE 20 U/L (0-73); LDL CHOLESTEROL 62 mg/dL (9-159); POTASSIUM 3.7 mmol/L (3.4-5.1); SGPT/ALT 14 U/L (10-49); T3 UPTAKE 27.8 % (22.4-36.7); THYROID STIM HORMONE (HS) 1.171 uIU/ml (0.550-4.780); THYROXINE (T4) TOTAL 16.9 ug/dl (4.5-10.9); TOTAL PROTEIN 8.2 gm/dL (6.0-8.0); TRIGLYCERIDES 86 mg/dl (<150)
[2022-05-09 16:06] LABS: VITAMIN D, 25-HYDROXY 39.7 ng/mL (30-100)
== END | disposition home or self-care (01) ==
LOC: LAB 14:47
PROVIDERS: ATTEND Family Medicine
DX: E78.5 Hyperlipidemia, unspecified (principal); E55.9 Vitamin D deficiency, unspecified; R79.89 Other specified abnormal findings of blood chemistry; R53.83 Other fatigue; R74.8 Abnormal levels of other serum enzymes

== ENCOUNTER → 2022-09-11 | Outpatient (CLI) | payer OTHER ==
[2022-09-11 13:01] LABS: BASO # 0.1 10*3/uL (0.0-0.1); BASO % 0.7 % (0.0-1.0); EOS # 0.2 10*3/uL (0.0-0.4); EOS % 1.6 % (1.0-4.0); HEMATOCRIT 34.6 % (37.0-47.0); LYMPH % 19.1 % (27.0-41.0); MEAN CELL VOLUME 64.8 fl (81.0-99.0); MEAN CORPUSCULAR HGB 19.3 pg (27.0-31.0); MEAN CORPUSCULAR HGB CONC 29.8 g/dl (33.0-37.0); MEAN PLATELET VOLUME 9.6 fl (9.6-12.3); MONO # 0.5 10*3/uL (0.1-1.0); MONO % 5.3 % (3.0-9.0); NEUT # 7.4 10*3/uL (2.3-7.9); PLATELET COUNT AUTOMATED 289 10*3/uL (130-400); RED BLOOD COUNT 5.34 10*6/uL (4.10-5.10); RED CELL DISTRI WIDTH 16.2 % (0-14.5); RETICULOCYTE % 1.59 % (0.50-2.50); WHITE BLOOD COUNT 10.2 10*3/uL (4.8-10.8)
[2022-09-11 13:12] LABS: BILIRUBIN Negative (Negative); BLOOD Negative (Negative); CLARITY Clear (Clear); COLOR Yellow (Yellow); GLUCOSE Negative (Negative); KETONE Negative (Negative); LEUKO ESTERASE 1+ (Negative); NITRITE Negative (Negative); PH 5.5 (4.5-8.0); UROBILINOGEN 0.2 E.U./dl (0.0-1.0)
[2022-09-11 13:43] LABS: ALKALINE PHOSPHATASE 67 U/L (46-116); BUN 15 mg/dl (9-23); CHLORIDE 101 mmol/L (98-107); CHOLESTEROL 123 mg/dL (<200); GAMMA GLUTAMYL TRANSPEPTIDASE 19 U/L (0-73); LDL CHOLESTEROL 64 mg/dL (9-159); POTASSIUM 3.6 mmol/L (3.4-5.1); SGPT/ALT 16 U/L (10-49); T3 UPTAKE 25.5 % (22.4-36.7); THYROID STIM HORMONE (HS) 2.381 uIU/ml (0.550-4.780); THYROXINE (T4) TOTAL 9.1 ug/dl (4.5-10.9); TOTAL PROTEIN 7.7 gm/dL (6.0-8.0); TRIGLYCERIDES 88 mg/dl (<150)
[2022-09-11 13:45] LABS: VITAMIN D, 25-HYDROXY 38.6 ng/mL (30-100)
[2022-09-11 13:54] LABS: MUCOUS 1+; RBC 0-2 rbc/hpf (0-2)
== END | disposition home or self-care (01) ==
LOC: LAB 12:16
PROVIDERS: ATTEND Family Medicine
DX: E78.5 Hyperlipidemia, unspecified (principal); E55.9 Vitamin D deficiency, unspecified; R79.89 Other specified abnormal findings of blood chemistry; R53.83 Other fatigue; R74.8 Abnormal levels of other serum enzymes

== ENCOUNTER → 2022-10-22 | Outpatient (CLI) | payer OTHER | END | disposition home or self-care (01) | LOC: RAD 10:42 | PROVIDERS: ATTEND Family Medicine | DX: M17.0 Bilateral primary osteoarthritis of knee (principal); M25.462 Effusion, left knee; M25.461 Effusion, right knee; M47.817 Spondylosis without myelopathy or radiculopathy, lumbosacral region ==

== ENCOUNTER → 2022-11-06 | Outpatient (CLI) | payer OTHER ==
[2022-11-06 16:56] LABS: BASO # 0.1 10*3/uL (0.0-0.1); BASO % 0.6 % (0.0-1.0); EOS # 0.1 10*3/uL (0.0-0.4); EOS % 0.9 % (1.0-4.0); HEMATOCRIT 41.1 % (37.0-47.0); LYMPH # 2.3 10*3/uL (1.3-4.4); LYMPH % 19.7 % (27.0-41.0); MEAN CELL VOLUME 66.1 fl (81.0-99.0); MEAN CORPUSCULAR HGB 19.6 pg (27.0-31.0); MEAN CORPUSCULAR HGB CONC 29.7 g/dl (33.0-37.0); MEAN PLATELET VOLUME 8.7 fl (9.6-12.3); MONO # 0.6 10*3/uL (0.1-1.0); MONO % 5.5 % (3.0-9.0); NEUT # 8.5 10*3/uL (2.3-7.9); NEUT % 72.9 % (47.0-73.0); PLATELET COUNT AUTOMATED 313 10*3/uL (130-400); RED BLOOD COUNT 6.22 10*6/uL (4.10-5.10); RED CELL DISTRI WIDTH 16.9 % (0-14.5); RETICULOCYTE % 1.33 % (0.50-2.50); WHITE BLOOD COUNT 11.6 10*3/uL (4.8-10.8)
== END | disposition home or self-care (01) ==
LOC: LAB 16:42
PROVIDERS: ATTEND Family Medicine
DX: R79.89 Other specified abnormal findings of blood chemistry (principal); R53.83 Other fatigue

== ENCOUNTER → 2022-11-21 | Outpatient (CLI) | payer OTHER | END | disposition home or self-care (01) | LOC: CT 01:47 | PROVIDERS: ATTEND Family Medicine | DX: Z01.818 Encounter for other preprocedural examination (principal); K46.9 Unspecified abdominal hernia without obstruction or gangrene; K76.0 Fatty (change of) liver, not elsewhere classified ==

== ENCOUNTER 2022-12-23 15:47 | Inpatient (IN) | payer OTHER ==
[~2022-12-23] VITALS: Ht 160 cm; Wt 144.9 kg
[2022-12-23 16:24] VITALS: BP 140/68
[2022-12-23 16:50] LABS: BASO # 0.1 10*3/uL (0.0-0.1); BASO % 0.4 % (0.0-1.0); EOS # 0.1 10*3/uL (0.0-0.4); EOS % 1.2 % (1.0-4.0); HEMATOCRIT 36.1 % (37.0-47.0); LYMPH # 2.3 10*3/uL (1.3-4.4); LYMPH % 20.1 % (27.0-41.0); MEAN CELL VOLUME 65.2 fl (81.0-99.0); MEAN CORPUSCULAR HGB 19.9 pg (27.0-31.0); MEAN CORPUSCULAR HGB CONC 30.5 g/dl (33.0-37.0); MEAN PLATELET VOLUME 9.2 fl (9.6-12.3); MONO # 0.7 10*3/uL (0.1-1.0); MONO % 5.7 % (3.0-9.0); NEUT # 8.4 10*3/uL (2.3-7.9); NEUT % 72.3 % (47.0-73.0); PLATELET COUNT AUTOMATED 307 10*3/uL (130-400); RED BLOOD COUNT 5.54 10*6/uL (4.10-5.10); RED CELL DISTRI WIDTH 16.7 % (0-14.5); WHITE BLOOD COUNT 11.6 10*3/uL (4.8-10.8)
[2022-12-23 17:01] LABS: INTERNATIONAL NORM RATIO 1.1 (2.0-3.5)
[2022-12-23 17:04] LABS: BILIRUBIN Negative (Negative); BLOOD Negative (Negative); CLARITY Clear (Clear); COLOR Yellow (Yellow); GLUCOSE Negative (Negative); KETONE Negative (Negative); LEUKO ESTERASE 1+ (Negative); NITRITE Negative (Negative)
[2022-12-23 17:11] LABS: ALKALINE PHOSPHATASE 66 U/L (46-116); BUN 8 mg/dl (9-23); CHLORIDE 102 mmol/L (98-107); LIPASE 40 U/L (12-53); POTASSIUM 3.5 mmol/L (3.4-5.1); SGPT/ALT 14 U/L (10-49); TOTAL PROTEIN 7.6 gm/dL (6.0-8.0)
[2022-12-23 17:18] LABS: BACTERIA 1+; EPITHELIAL CELLS 0-2; RBC 0-2 rbc/hpf (0-2)
[2022-12-23 20:01] VITALS: BP 136/77
[2022-12-23 20:25] VITALS: BP 149/68
[2022-12-23] MEDS ORDERED: ALDACTONE25 MG PO (20:34)
[2022-12-23] MEDS ORDERED: METOPROLOL SUC100 M1 PO (20:34)
[2022-12-23] MEDS ORDERED: FUROSEMIDE20 M1 PO (20:35)
[2022-12-23] MEDS ORDERED: BUDESONIDE-FO10.2 G1 INH (20:36)
[2022-12-23] MEDS ORDERED: LIDODERM1 EACH T (20:37)
[2022-12-23] MEDS ORDERED: AMLODIPINE BESYL5 MG PO (20:38)
[2022-12-23] MEDS ORDERED: ANASTROZOLE1 M1 PO (20:39)
[2022-12-23] MEDS ORDERED: APRESOLINE25 MG PO (20:40)
[2022-12-23] MEDS ORDERED: OZEMPIC0.25 MG/03 SQ (20:41)
[2022-12-23] MEDS ORDERED: MOTRIN 600 MG E4 TAB PO (20:43)
[2022-12-23] MEDS ORDERED: LOSARTAN POTAS100 M1 PO (20:44)
[2022-12-24] VITALS: BP 128/58; BP 128/64
[2022-12-24 06:59] LABS: BASO # 0.1 10*3/uL (0.0-0.1); BASO % 0.6 % (0.0-1.0); EOS # 0.2 10*3/uL (0.0-0.4); EOS % 1.7 % (1.0-4.0); HEMATOCRIT 36.3 % (37.0-47.0); LYMPH # 1.8 10*3/uL (1.3-4.4); LYMPH % 19.4 % (27.0-41.0); MEAN CELL VOLUME 66.5 fl (81.0-99.0); MEAN CORPUSCULAR HGB 19.4 pg (27.0-31.0); MEAN CORPUSCULAR HGB CONC 29.2 g/dl (33.0-37.0); MEAN PLATELET VOLUME 9.2 fl (9.6-12.3); MONO # 0.6 10*3/uL (0.1-1.0); MONO % 6.1 % (3.0-9.0); NEUT # 6.6 10*3/uL (2.3-7.9); NEUT % 71.7 % (47.0-73.0); PLATELET COUNT AUTOMATED 283 10*3/uL (130-400); RED BLOOD COUNT 5.46 10*6/uL (4.10-5.10); RED CELL DISTRI WIDTH 16.8 % (0-14.5); WHITE BLOOD COUNT 9.2 10*3/uL (4.8-10.8)
[2022-12-24 07:31] LABS: BUN 7 mg/dl (9-23); CHLORIDE 99 mmol/L (98-107); POTASSIUM 3.4 mmol/L (3.4-5.1)
[2022-12-24 08:00] VITALS: BP 127/73
[2022-12-24 12:00] VITALS: BP 130/69
[2022-12-24 16:00] VITALS: BP 133/77
[2022-12-24 20:00] VITALS: BP 128/50
[2022-12-24 21:20] VITALS: BP 139/76
[2022-12-25] VITALS: BP 121/56
[2022-12-25 06:17] LABS: BASO # 0.1 10*3/uL (0.0-0.1); BASO % 0.6 % (0.0-1.0); EOS # 0.2 10*3/uL (0.0-0.4); EOS % 1.7 % (1.0-4.0); HEMATOCRIT 37.5 % (37.0-47.0); LYMPH # 1.8 10*3/uL (1.3-4.4); LYMPH % 20.5 % (27.0-41.0); MEAN CELL VOLUME 64.8 fl (81.0-99.0); MEAN CORPUSCULAR HGB 19.5 pg (27.0-31.0); MEAN CORPUSCULAR HGB CONC 30.1 g/dl (33.0-37.0); MEAN PLATELET VOLUME 9.5 fl (9.6-12.3); MONO # 0.5 10*3/uL (0.1-1.0); MONO % 6.3 % (3.0-9.0); NEUT # 6.1 10*3/uL (2.3-7.9); NEUT % 70.6 % (47.0-73.0); PLATELET COUNT AUTOMATED 288 10*3/uL (130-400); RED BLOOD COUNT 5.79 10*6/uL (4.10-5.10); RED CELL DISTRI WIDTH 16.6 % (0-14.5); WHITE BLOOD COUNT 8.6 10*3/uL (4.8-10.8)
[2022-12-25 06:38] LABS: BUN 9 mg/dl (9-23); CHLORIDE 99 mmol/L (98-107); POTASSIUM 3.2 mmol/L (3.4-5.1)
[2022-12-25 08:00] VITALS: BP 122/59
[2022-12-25 12:00] VITALS: BP 134/61
[2022-12-25 16:00] VITALS: BP 128/68
[2022-12-25 20:00] VITALS: BP 112/76
[2022-12-26] VITALS: BP 122/68
[2022-12-26 07:15] LABS: BUN 14 mg/dl (9-23); CHLORIDE 93 mmol/L (98-107)
[2022-12-26 07:16] LABS: POTASSIUM 4.2 mmol/L (3.4-5.1)
[2022-12-26 08:00] VITALS: BP 122/69
[2022-12-26 12:00] VITALS: BP 105/63
[2022-12-26] MEDS ORDERED: ATORVASTATIN CA40 M1 PO (14:18)
[2022-12-26] MEDS ORDERED: KLOR-CON M2020 ME1 PO (14:18)
[2022-12-26] MEDS ORDERED: TORSEMIDE20 MG PO (14:18)
[2022-12-26] MEDS ORDERED: ASPIRIN ADULT L81 M2 PO (14:18)
== END 2022-12-26 15:07 | disposition home or self-care (01) | DRG 292 ==
LOC: ED 15:47 → 5E 18:52 → EDHOLD 18:52 → 5E 20:38
PROVIDERS: Emergency Medicine; Internal Medicine; Student in an Organized Health Care Education/Training Program; ADMIT Internal Medicine; ATTEND Internal Medicine
PROC: 4A02XM4 Measurement of Cardiac Total Activity, External Approach (ICD-10-PCS; principal; 2022-12-23)
PROC: 3E073KZ Introduction of Other Diagnostic Substance into Coronary Artery, Percutaneous Approach (ICD-10-PCS; 2022-12-23)
DX: I11.0 Hypertensive heart disease with heart failure (principal); N30.00 Acute cystitis without hematuria; Z68.44 Body mass index [BMI] 60.0-69.9, adult; I50.9 Heart failure, unspecified; D50.9 Iron deficiency anemia, unspecified; E83.42 Hypomagnesemia; K21.9 Gastro-esophageal reflux disease without esophagitis; E66.01 Morbid (severe) obesity due to excess calories; F41.1 Generalized anxiety disorder; D72.829 Elevated white blood cell count, unspecified; R73.9 Hyperglycemia, unspecified; R09.89 Other specified symptoms and signs involving the circulatory and respiratory systems; I45.10 Unspecified right bundle-branch block; D56.3 Thalassemia minor; S29.011A Strain of muscle and tendon of front wall of thorax, initial encounter; Z88.6 Allergy status to analgesic agent; Z88.8 Allergy status to other drugs, medicaments and biological substances; Z90.49 Acquired absence of other specified parts of digestive tract; Z98.891 History of uterine scar from previous surgery; Z82.49 Family history of ischemic heart disease and other diseases of the circulatory system; Z83.3 Family history of diabetes mellitus; Z80.1 Family history of malignant neoplasm of trachea, bronchus and lung; X58.XXXA Exposure to other specified factors, initial encounter; Y93.89 Activity, other specified; Y92.89 Other specified places as the place of occurrence of the external cause; Y99.8 Other external cause status

== ENCOUNTER → 2023-07-02 | Outpatient (CLI) | payer OTHER ==
[~2023-07-02] MED LIST changes: +ALDACTONE25 MG PO; +AMLODIPINE BESYL5 MG PO; +ANASTROZOLE1 M1 PO; +APRESOLINE25 MG PO; +ASPIRIN ADULT L81 M2 PO; +ATORVASTATIN CA40 M1 PO; +BUDESONIDE-FO10.2 G1 INH; +FUROSEMIDE20 M1 PO; +LIDODERM1 EACH T; +LOSARTAN POTAS100 M1 PO; +METOPROLOL SUC100 M1 PO; +MOTRIN 600 MG E4 TAB PO; +OZEMPIC0.25 MG/03 SQ; +TORSEMIDE20 MG PO
[2023-07-02 08:48] LABS: BASO # 0.1 10*3/uL (0.0-0.1); BASO % 0.7 % (0.0-1.0); EOS # 0.1 10*3/uL (0.0-0.4); EOS % 1.1 % (1.0-4.0); HEMATOCRIT 37.1 % (37.0-47.0); LYMPH # 1.8 10*3/uL (1.3-4.4); LYMPH % 21.8 % (27.0-41.0); MEAN CELL VOLUME 67.2 fl (81.0-99.0); MEAN CORPUSCULAR HGB 19.9 pg (27.0-31.0); MEAN CORPUSCULAR HGB CONC 29.6 g/dl (33.0-37.0); MEAN PLATELET VOLUME 9.3 fl (9.6-12.3); MONO # 0.5 10*3/uL (0.1-1.0); MONO % 5.5 % (3.0-9.0); NEUT # 5.8 10*3/uL (2.3-7.9); NEUT % 70.7 % (47.0-73.0); PLATELET COUNT AUTOMATED 330 10*3/uL (130-400); RED BLOOD COUNT 5.52 10*6/uL (4.10-5.10); RED CELL DISTRI WIDTH 14.5 % (0-14.5); RETICULOCYTE % 1.65 % (0.50-2.50); WHITE BLOOD COUNT 8.2 10*3/uL (4.8-10.8)
[2023-07-02 08:50] LABS: BILIRUBIN Negative (Negative); BLOOD Negative (Negative); CLARITY Clear (Clear); COLOR Yellow (Yellow); GLUCOSE Negative (Negative); KETONE Negative (Negative); LEUKO ESTERASE Negative (Negative); NITRITE Negative (Negative); UROBILINOGEN 0.2 E.U./dl (0.0-1.0)
[2023-07-02 09:04] LABS: BACTERIA 1+
[2023-07-02 09:29] LABS: POTASSIUM 3.7 mmol/L (3.4-5.1); T3 UPTAKE 38.6 % (22.4-36.7); THYROXINE (T4) TOTAL 10.3 ug/dl (4.5-10.9); TOTAL PROTEIN 8.3 gm/dL (6.0-8.0)
[2023-07-02 09:30] LABS: VITAMIN D, 25-HYDROXY 38.9 ng/mL (30-100)
== END | disposition home or self-care (01) ==
LOC: LAB 08:25
PROVIDERS: ATTEND Family Medicine
DX: R53.83 Other fatigue (principal); R79.89 Other specified abnormal findings of blood chemistry; E78.5 Hyperlipidemia, unspecified; E55.9 Vitamin D deficiency, unspecified

== ENCOUNTER → 2023-09-09 | Outpatient (CLI) | payer OTHER ==
[2023-09-09 12:02] LABS: BASO # 0.1 10*3/uL (0.0-0.1); BASO % 0.5 % (0.0-1.0); EOS # 0.1 10*3/uL (0.0-0.4); EOS % 0.8 % (1.0-4.0); HEMATOCRIT 34.8 % (37.0-47.0); LYMPH % 18.6 % (27.0-41.0); MEAN CELL VOLUME 67.3 fl (81.0-99.0); MEAN CORPUSCULAR HGB 19.5 pg (27.0-31.0); MEAN PLATELET VOLUME 8.9 fl (9.6-12.3); MONO # 0.5 10*3/uL (0.1-1.0); NEUT % 74.5 % (47.0-73.0); PLATELET COUNT AUTOMATED 345 10*3/uL (130-400); RED BLOOD COUNT 5.17 10*6/uL (4.10-5.10); WHITE BLOOD COUNT 10.7 10*3/uL (4.8-10.8)
[2023-09-09 12:07] LABS: BILIRUBIN Negative (Negative); BLOOD Negative (Negative); CLARITY Clear (Clear); COLOR Yellow (Yellow); GLUCOSE Negative (Negative); KETONE Negative (Negative); LEUKO ESTERASE Negative (Negative); NITRITE Negative (Negative); SPECIFIC GRAVITY <= 1.005 (1.001-1.030); UROBILINOGEN 0.2 E.U./dl (0.0-1.0)
[2023-09-09 12:11] LABS: URINE CREATININE RANDOM 27.57 mg/dL
[2023-09-09 12:39] LABS: POTASSIUM 3.5 mmol/L (3.4-5.1)
[2023-09-09 12:40] LABS: EPITHELIAL CELLS 0-2; WBC 0-2 wbc/hpf (0-5)
[2023-09-09 12:42] LABS: VITAMIN D, 25-HYDROXY 48.5 ng/mL (30-100)
== END ==
LOC: LAB 11:38
PROVIDERS: ATTEND Internal Medicine Nephrology
DX: N17.9 Acute kidney failure, unspecified (principal); E11.9 Type 2 diabetes mellitus without complications; E55.9 Vitamin D deficiency, unspecified; D63.1 Anemia in chronic kidney disease

== ENCOUNTER → 2023-09-30 | Outpatient (CLI) | payer OTHER ==
[2023-09-30 10:38] LABS: BASO # 0.1 10*3/uL (0.0-0.1); BASO % 0.7 % (0.0-1.0); EOS # 0.1 10*3/uL (0.0-0.4); HEMATOCRIT 33.3 % (37.0-47.0); LYMPH # 1.9 10*3/uL (1.3-4.4); LYMPH % 19.7 % (27.0-41.0); MEAN CELL VOLUME 66.5 fl (81.0-99.0); MEAN CORPUSCULAR HGB 20.8 pg (27.0-31.0); MEAN CORPUSCULAR HGB CONC 31.2 g/dl (33.0-37.0); MONO # 0.5 10*3/uL (0.1-1.0); MONO % 5.2 % (3.0-9.0); NEUT % 73.1 % (47.0-73.0); PLATELET COUNT AUTOMATED 320 10*3/uL (130-400); RED BLOOD COUNT 5.01 10*6/uL (4.10-5.10); RED CELL DISTRI WIDTH 16.1 % (0-14.5); WHITE BLOOD COUNT 9.6 10*3/uL (4.8-10.8)
[2023-09-30 10:41] LABS: BILIRUBIN Negative (Negative); BLOOD Negative (Negative); CLARITY Clear (Clear); COLOR Yellow (Yellow); GLUCOSE Negative (Negative); KETONE Negative (Negative); LEUKO ESTERASE Trace (Negative); NITRITE Negative (Negative); SPECIFIC GRAVITY 1.015 (1.001-1.030); UROBILINOGEN 0.2 E.U./dl (0.0-1.0)
[2023-09-30 10:48] LABS: URINE CREATININE RANDOM 135.09 mg/dL
[2023-09-30 11:46] LABS: POTASSIUM 3.8 mmol/L (3.4-5.1)
[2023-09-30 12:07] LABS: VITAMIN D, 25-HYDROXY 50.2 ng/mL (30-100)
== END | disposition home or self-care (01) ==
LOC: LAB 10:06
PROVIDERS: ATTEND Internal Medicine Nephrology
DX: E11.9 Type 2 diabetes mellitus without complications (principal); E55.9 Vitamin D deficiency, unspecified; N17.9 Acute kidney failure, unspecified; D63.1 Anemia in chronic kidney disease

== ENCOUNTER → 2023-10-09 | Outpatient (CLI) | payer OTHER | END | disposition home or self-care (01) | LOC: US 08:05 | PROVIDERS: ATTEND Internal Medicine Nephrology | DX: N17.9 Acute kidney failure, unspecified (principal); E11.9 Type 2 diabetes mellitus without complications; I10 Essential (primary) hypertension; R94.4 Abnormal results of kidney function studies ==

== ENCOUNTER → 2023-10-30 | Outpatient (CLI) | payer OTHER ==
[2023-10-30 11:29] LABS: BASO # 0.1 10*3/uL (0.0-0.1); BASO % 0.6 % (0.0-1.0); EOS # 0.1 10*3/uL (0.0-0.4); EOS % 0.8 % (1.0-4.0); HEMATOCRIT 35.5 % (37.0-47.0); LYMPH # 2.6 10*3/uL (1.3-4.4); LYMPH % 24.1 % (27.0-41.0); MEAN CELL VOLUME 67.7 fl (81.0-99.0); MEAN CORPUSCULAR HGB 20.2 pg (27.0-31.0); MEAN CORPUSCULAR HGB CONC 29.9 g/dl (33.0-37.0); MEAN PLATELET VOLUME 8.9 fl (9.6-12.3); MONO # 0.6 10*3/uL (0.1-1.0); MONO % 5.7 % (3.0-9.0); NEUT # 7.4 10*3/uL (2.3-7.9); NEUT % 68.5 % (47.0-73.0); PLATELET COUNT AUTOMATED 404 10*3/uL (130-400); RED BLOOD COUNT 5.24 10*6/uL (4.10-5.10); RED CELL DISTRI WIDTH 15.3 % (0-14.5); WHITE BLOOD COUNT 10.8 10*3/uL (4.8-10.8)
[2023-10-30 11:59] LABS: BILIRUBIN Negative (Negative); BLOOD Negative (Negative); CLARITY Clear (Clear); COLOR Yellow (Yellow); GLUCOSE Negative (Negative); KETONE Negative (Negative); LEUKO ESTERASE Negative (Negative); NITRITE Negative (Negative); PH 5.5 (4.5-8.0); SPECIFIC GRAVITY <= 1.005 (1.001-1.030); UROBILINOGEN 0.2 E.U./dl (0.0-1.0)
[2023-10-30 12:04] LABS: URINE CREATININE RANDOM 36.32 mg/dL
[2023-10-30 12:08] LABS: EPITHELIAL CELLS 0-2; WBC 0-2 wbc/hpf (0-5)
[2023-10-30 12:09] LABS: POTASSIUM 4.2 mmol/L (3.4-5.1)
== END | disposition home or self-care (01) ==
LOC: LAB 10:54
PROVIDERS: ATTEND Internal Medicine Nephrology
DX: N17.9 Acute kidney failure, unspecified (principal); D63.1 Anemia in chronic kidney disease; N18.9 Chronic kidney disease, unspecified

== ENCOUNTER → 2023-11-25 | Outpatient (CLI) | payer OTHER ==
[2023-11-25 10:14] LABS: BASO # 0.1 10*3/uL (0.0-0.1); BASO % 0.6 % (0.0-1.0); EOS # 0.1 10*3/uL (0.0-0.4); EOS % 1.2 % (1.0-4.0); HEMATOCRIT 34.4 % (37.0-47.0); LYMPH # 1.9 10*3/uL (1.3-4.4); MEAN CELL VOLUME 68.1 fl (81.0-99.0); MEAN CORPUSCULAR HGB 20.8 pg (27.0-31.0); MEAN CORPUSCULAR HGB CONC 30.5 g/dl (33.0-37.0); MEAN PLATELET VOLUME 9.2 fl (9.6-12.3); MONO # 0.5 10*3/uL (0.1-1.0); PLATELET COUNT AUTOMATED 325 10*3/uL (130-400); RED BLOOD COUNT 5.05 10*6/uL (4.10-5.10); RED CELL DISTRI WIDTH 15.2 % (0-14.5); RETICULOCYTE % 1.79 % (0.50-2.50); WHITE BLOOD COUNT 8.5 10*3/uL (4.8-10.8)
[2023-11-25 10:34] LABS: BILIRUBIN Negative (Negative); BLOOD Negative (Negative); CLARITY Clear (Clear); COLOR Yellow (Yellow); GLUCOSE Negative (Negative); KETONE Negative (Negative); LEUKO ESTERASE Negative (Negative); NITRITE Negative (Negative); SPECIFIC GRAVITY 1.015 (1.001-1.030); UROBILINOGEN 0.2 E.U./dl (0.0-1.0)
[2023-11-25 10:47] LABS: POTASSIUM 3.9 mmol/L (3.4-5.1); TOTAL PROTEIN 7.7 gm/dL (6.0-8.0)
[2023-11-25 10:53] LABS: BACTERIA 1+; MUCOUS 1+; WBC 0-2 wbc/hpf (0-5)
== END | disposition home or self-care (01) ==
LOC: LAB 09:46
PROVIDERS: ATTEND Family Medicine
DX: Z01.812 Encounter for preprocedural laboratory examination (principal); R79.89 Other specified abnormal findings of blood chemistry; R53.83 Other fatigue; E55.9 Vitamin D deficiency, unspecified

== ENCOUNTER → 2023-12-09 | Outpatient (CLI) | payer OTHER ==
[2023-12-09 15:37] LABS: BASO # 0.1 10*3/uL (0.0-0.1); BASO % 0.5 % (0.0-1.0); EOS # 0.1 10*3/uL (0.0-0.4); EOS % 1.1 % (1.0-4.0); HEMATOCRIT 33.4 % (37.0-47.0); LYMPH # 2.9 10*3/uL (1.3-4.4); LYMPH % 23.1 % (27.0-41.0); MEAN CELL VOLUME 66.5 fl (81.0-99.0); MEAN CORPUSCULAR HGB 20.9 pg (27.0-31.0); MEAN CORPUSCULAR HGB CONC 31.4 g/dl (33.0-37.0); MEAN PLATELET VOLUME 8.9 fl (9.6-12.3); MONO # 0.6 10*3/uL (0.1-1.0); MONO % 4.5 % (3.0-9.0); NEUT # 8.9 10*3/uL (2.3-7.9); NEUT % 70.3 % (47.0-73.0); PLATELET COUNT AUTOMATED 317 10*3/uL (130-400); RED BLOOD COUNT 5.02 10*6/uL (4.10-5.10); RED CELL DISTRI WIDTH 15.9 % (0-14.5); WHITE BLOOD COUNT 12.6 10*3/uL (4.8-10.8)
[2023-12-09 15:39] LABS: BILIRUBIN Negative (Negative); BLOOD Negative (Negative); CLARITY Clear (Clear); COLOR Yellow (Yellow); GLUCOSE Negative (Negative); KETONE Negative (Negative); LEUKO ESTERASE Negative (Negative); NITRITE Negative (Negative); UROBILINOGEN 0.2 E.U./dl (0.0-1.0)
[2023-12-09 15:45] LABS: URINE CREATININE RANDOM 65.91 mg/dL
[2023-12-09 15:49] LABS: MUCOUS TRACE; WBC 0-2 wbc/hpf (0-5)
[2023-12-09 15:59] LABS: POTASSIUM 3.8 mmol/L (3.4-5.1)
[2023-12-09 16:03] LABS: VITAMIN D, 25-HYDROXY 47.2 ng/mL (30-100)
== END | disposition home or self-care (01) ==
LOC: LAB 15:15
PROVIDERS: ATTEND Internal Medicine Nephrology
DX: E11.9 Type 2 diabetes mellitus without complications (principal); E55.9 Vitamin D deficiency, unspecified; D63.1 Anemia in chronic kidney disease; N17.9 Acute kidney failure, unspecified

== ENCOUNTER → 2024-01-01 | Outpatient (CLI) | payer OTHER ==
[2024-01-01 14:10] LABS: POTASSIUM 3.8 mmol/L (3.4-5.1)
== END | disposition home or self-care (01) ==
LOC: LAB 13:01
PROVIDERS: ATTEND Nurse Practitioner Family
DX: N17.9 Acute kidney failure, unspecified (principal)